=== PATIENT | male | born 1965 | race Caucasian/White ===

== ENCOUNTER → 2022-08-10 14:38 | Outpatient (CLI) | payer MEDICARE, SELFPAY ==
--- NOTE | ~2022-08-10 | XR_ITS ---
EXAMINATION: XR ankle LT min 3V DATE: 08/10/2022 14:54 INDICATION: Left ankle pain. TECHNIQUE: 4 views of left ankle were obtained. COMPARISON: None. FINDINGS: Pes planus is noted. No fracture. There is severe osteoarthritis of talonavicular joint. IMPRESSION: 1. Severe osteoarthritis of talonavicular joint. 2. Pes planus. Reviewed, dictated and finalized at location A. R SCIENTIST
== END ==
PROVIDERS: PCP Internal Medicine; Visit Provider Nurse Practitioner
DX: G89.29 Other chronic pain (principal); M25.572 Pain in left ankle and joints of left foot; M19.072 Primary osteoarthritis, left ankle and foot; M21.42 Flat foot [pes planus] (acquired), left foot
CPT/HCPCS: 73610

== ENCOUNTER → 2023-02-04 13:38 | Outpatient (CLI) | payer MEDICARE, SELFPAY ==
--- NOTE | ~2023-02-04 | CT_ITS ---
EXAMINATION: CT brain wo/w con DATE: 02/04/2023 14:05 INDICATION: Evaluate 12 cm subcutaneous right scalp mass. No just 4 months ago, growing larger than t he last one and one half months. TECHNIQUE: Computed tomography (CT) of the head was performed without and with 100 mL Omnipaque 350 i ntravenous contrast. The mA was adjusted according to patient size. Iterative reconstruction techniqu e was employed. The dose-length product was 1349.03 mGy-cm. COMPARISON: None. FINDINGS: No acute intracranial hemorrhage or extra-axial fluid collection. No hydrocephalus. 7.4 x 5.0 x 9.0 cm intensely and somewhat heterogeneously enhancing mass over the r ight hemisphere, with extra-axial and extracalvarial components. There is penetration of the inner an d outer tables of the skull at the junction of the right posterior frontal, right temporal, and right anterior parietal bones, with scalloping, and mild periosteal change. Mild local mass effect on the cerebral sulci, mild adjacent vasogenic edema, mild mhkoi-ge-hvhu midline shift of 3 mm. No acute ischemic infarct. Unremarkable dural venous sinus attenuation. No acute osseous abnormality. Ethmoid mucosal thickening, small bilateral sphenoid retention cysts/polyps, the remaining aerated sp aces are clear. IMPRESSION: 9 cm, enhancing right hemispheric mass, with extra-axial and extracalvarial components, skull erosion , mild local mass effect, and mild subfalcine herniation. Recommend neurosurgical consultation. Reviewed, dictated and finalized at location K. IMPRESSION: 9 cm, enhancing right hemispheric mass, with extra-axial and extracalvarial com ponents, skull erosion, mild local mass effect, and mild subfalcine herniation. Recommend neurosurgical consultation.
== END ==
PROVIDERS: PCP Nurse Practitioner; Visit Provider Nurse Practitioner
DX: R22.9 Localized swelling, mass and lump, unspecified (principal)
CPT/HCPCS: 70470; Q9967

== ENCOUNTER 2023-03-02 11:40 | Outpatient (CLI) | payer MEDICARE, SELFPAY ==
[2023-03-02 11:54] LABS: Basophils Absolute Auto 0.1 K/mm3 (0.0-0.1); Basophils Percent Auto 0.9 % (0.2-1.2); Eosinophils Absolute Auto 0.2 K/mm3 (0-0.3); Eosinophils Percent Auto 3.9 % (0-4.4); Hematocrit 41.3 % (42.0-52.0); Hemoglobin 13.6 g/dL (14.0-18.0); Immature Granulocyte Absolute 0.01 K/mm3 (0.00-0.031); Immature Granulocyte Percent A 0.2 % (0-0.5); Lymphocytes Absolute Auto 2.27 K/mm3 (0.9-3.2); Lymphocytes Percent Auto 38.7 % (18.3-44.2); Mean Corpuscular HGB Conc 32.9 g/dl (32-36); Mean Corpuscular Hemoglobin 30.7 pg (26-34); Mean Corpuscular Volume 93.2 fl (80-100); Mean Platelet Volume 10.3 fl (7.4-10.4); Monocytes Absolute Auto 0.6 K/mm3 (0.1-0.6); Monocytes Percent Auto 9.7 % (2.6-8.5); Neutrophils Absolute Auto 2.7 K/mm3 (1.3-6.7); Neutrophils Percent Auto 46.6 % (45.5-73.1); Platelet Count Result 197 k/mm3 (150-375); Red Blood Count 4.43 M/mm3 (4.6-6.20); Red Cell Distribution Width 12.4 % (11.5-14.5); White Blood Count 5.9 K/mm3 (4.5-10.0)
[2023-03-02 15:42] LABS: Alanine Aminotransferase 40 U/L (6-50); Albumin Level 4.6 g/dL (3.5-5.1); Alkaline Phosphatase 58 U/L (38-126); Anion Gap 8 mmol/L (8-16); Aspartate Amino Transferase 29 U/L (17-59); Bilirubin,Total 0.5 mg/dL (0.2-1.3); Blood Urea Nitrogen 9 mg/dL (9-20); Calcium 9.3 mg/dL (8.4-10.2); Carbon Dioxide 27 mmol/L (22-30); Chloride 104 mmol/L (98-107); Estimated Glomerular Filt Rate > 60; Glucose 112 mg/dL (65-110); Potassium 4.1 mmol/L (3.4-5.0); Sodium 139 mmol/L (137-145)
[2023-03-03 16:59] LABS: Immunoglobulin A 100 mg/dL (70-400); Immunoglobulin G 567 mg/dL (700-1600)
[2023-03-03 18:30] LABS: Immunoglobulin M < 25 mg/dL (40-230)
[2023-03-05 03:49] LABS: Albumin 4.5 g/dL (3.8-4.8); Alpha 1 Globulin 0.3 g/dL (0.2-0.3); Alpha 2 Globulin 0.7 g/dL (0.5-0.9); Beta 1 Globulin 0.5 g/dL (0.4-0.6); Gamma Globulin 0.6 g/dL (0.8-1.7); Interpretation Consistent with; Protein, Total 6.9 g/dL (6.1-8.1)
[2023-03-05 20:48] LABS: Kappa\\Lambda Light Chains 1.34 (0.26-1.65); Lambda Light Chain 6.8 mg/L (5.7-26.3)
== END 2023-03-02 11:41 | disposition home or self-care (01) ==
LOC: ANHLAB 11:41
PROVIDERS: PCP Family Medicine; Visit Provider Internal Medicine Hematology & Oncology
DX: C90.00 Multiple myeloma not having achieved remission (principal)
CPT/HCPCS: 36415; 80053; 82784; 83883; 84155; 84165; 85025

== ENCOUNTER 2023-03-10 11:52 | Outpatient (CLI) | payer MEDICARE, SELFPAY ==
--- NOTE | ~2023-03-10 | PE_ITS ---
EXAMINATION: PET skull to mid thigh DATE: 03/10/2023 14:33 INDICATION: Multiple myeloma. Assess remission status. TECHNIQUE: Blood glucose level was 116 mg/dL. 8.927 mCi of 18-fluorodeoxyglucose (18-FDG) was adminis tered i.v. Low dose computed tomography (CT) images were acquired from the base of the brain to the p roximal thighs for attenuation correction and anatomic localization. Positron emission tomography (PE T) images were acquired in the same distribution beginning 62 minutes after injection. Images includi ng fused PET/CT images were reconstructed in axial, coronal, and sagittal planes. Automated exposure control technique was employed. The dose-length product was 1099.77mGy-cm. COMPARISON: Head CT dated 02/04/2023 FINDINGS: Head/neck: Again seen is a large right frontal calvarial centered mass measuring 7.2 x 6.2 x 10.0 cm with extrao sseous extension extending through both the inner and outer tables of the skull. The mass demonstrate s relatively mild FDG uptake with maximal SUV of 3.7. The mass has increased in size when compared wi th the prior study at which time are 7.1 x 5.4 x 8.6 cm. There is symmetric increased activity in the oral and nasal cavities, parotid glands, submandibular glands, laryngeal muscles and ocular muscles without CT correlate, likely physiologic. No pathologically enlarged cervical lymphadenopathy or garrett picious foci of increased FDG uptake in the visualized head or neck. Chest: Elevation the right hemidiaphragm with basilar atelectasis in the right middle and lower lobes. Calci fied right lower lobe nodules consistent with old granulomatous disease. No suspicious pulmonary nodu les, pneumonia, pulmonary edema or pleural effusion. Heart size is normal. Small pericardial effusion . Thoracic aorta is normal in caliber. No pathologically enlarged or FDG avid thoracic lymphadenopath y. Abdomen/pelvis/proximal thighs: Physiologic renal accumulation and excretion of FDG activity in the kidneys, bladder and along portio ns of ureters. Normal degree and heterogenous pattern of increased uptake throughout the liver withou t radiologic correlate or dominant FDG avid lesion. The gallbladder, pancreas, spleen and bilateral a drenal glands are normal. Mild uptake scattered throughout the bowels without radiologic correlate, a lso likely physiologic. Diverticulosis with descending and sigmoid colon predominance without adjacen t from trace stranding to suggest diverticulitis. Normal appendix. Prostatomegaly. No other abnormal foci of increased FDG uptake or pathologically enlarged lymphadenopathy in the abdomen, pelvis or pro ximal thighs. Musculoskeletal: Small lytic lesion without evident corresponding increased FDG uptake at T6, T10. Mild increased FDG uptake with maximal SUV of 3.1 associated with a healing fracture of the anterior left eighth rib wit hout evident underlying lytic bone lesion. 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 Mild lumbar levoscoliosis. IMPRESSION: 1. Mild increased FDG uptake associated with an enlarging now 10.0 x 7.2 x 6.2 cm right frontal ry rial based mass with both deep and superficial extraosseous extension consistent with biopsy-proven p lasmacytoma. Although the FDG uptake is relatively low, the mass has increased in size since the rece nt head CT consistent with progression of disease despite reported interval radiation treatment. 2. A couple additional small lytic lesions in the T6 and T10 vertebral bodies which are without evide nt increased FDG uptake although given the relatively low uptake at the significantly larger mass in the skull additional multiple myeloma could not be excluded.
[2023-03-10 12:47] LABS: Glucose Point of Care 116 mg/dl (65-105)
== END 2023-03-10 11:53 | disposition home or self-care (01) ==
PROVIDERS: PCP Family Medicine; Visit Provider Internal Medicine Hematology & Oncology
DX: C90.00 Multiple myeloma not having achieved remission (principal); M89.9 Disorder of bone, unspecified
CPT/HCPCS: 77386; 78815; A9552

== ENCOUNTER 2023-05-23 00:56 | Day surgery (SDC) | payer MEDICARE, SELFPAY ==
[2023-05-18 11:49] VITALS: BMI 25.7
--- NOTE | 2023-05-18 11:57 | PC.NURSE ---
Report to the Outpatient Waiting Room, entrance under the green pavilion located off [facility], at time 10:00 on date 05/23/23. Planned Procedure Time: 12:00. Time changes happen often and if your time is changed the preop area will call you the afternoon before. - You and your visitor will be asked to self-screen and do not enter if you have any COVID symptoms. - A mask is optional within the hospital at this time. Patients may have clear liquids (water, carbonated beverages, clear teas, apple juice) until 3 hours prior to surgery with a maximum of 20 ounces. - No food from midnight until time of surgery Take the following medications with a SIP of water the morning of surgery: ACYCLOVIR, DEXAMETHASONE, BACTRIM DO NOT STOP ANY OF YOUR OTHER PRESCRIPTION MEDICATIONS PRIOR TO SURGERY ?EXCEPT THE FOLLOWING Medications to discontinue per physician: N/A Date to take last dose: N/A Please no make-up, nail maori, hairspray, perfume, deodorant, or body powder the day of surgery. No jewelry (including any body piercings) or valuables the day of surgery, leave them at home. Please take a shower or bath the night before, or the morning of, surgery with an antibacterial soap. Wear comfortable, loose fitting clothing. - Jewelry must be removed prior to entering the operating room. Rings and piercings that are not removed may be cut off. - The hospital will not accept responsibility for valuables. - Please leave all valuables, including medications, at home the day of surgery. If you are going home after surgery, a licensed tour driver must drive you home. - NO public transportation without another adult if you receive anesthesia. - We recommend that an adult stay with you for 24 hours following discharge. - We also recommend that you do not drive, make important decision, drink alcoholic beverages, or take any drugs that were not prescribed by your health care provider for at least 24 hours after your discharge time. Follow any additional instructions given to you from your surgeon. If you or anyone in your household have experienced Covid symptoms in the past week, please notify your surgeon or the nurse liaison at the phone number below for possible testing. Telephone instructions given to PT - ALICIA THOMAS and asked if any additional questions and then verbalized understanding. Patient advised to call surgeon office or pre surgery nurse liaison [phone] if any additional questions.
[2023-05-23] VITALS (10 sets, daily range): BP systolic 113–131; BP diastolic 64–78; PULSE 68–85; RESP 12–20; TEMP 36.2–36.6; O2SAT 93–98
--- NOTE | ~2023-05-23 | XR_ITS ---
XR chest port-a-cath/central, XR fl guide central line place 05/23/2023 12:36 (accession [id number]), 05/23/2023 11:58 (accession [id number]) Indication: Portacatheter placement Procedure: Single fluoroscopic view of the right chest. 30 seconds of fluoroscopy. AP portable chest. Comparison: No prior studies for comparison. Findings: Right-sided portacatheter, tip in the condyle aspect of the SVC. Cardiomegaly. Left basilar atelectasis. No pneumothorax. No significant effusion. Impression: 1: Left basilar atelectasis. 2: Right-sided portacatheter tip in the SVC. Reviewed, dictated and finalized at location B. Impression: 1: Left basilar atelectasis. 2: Right-sided portacatheter tip in the SVC. Impression: 1: Left basilar atelectasis. 2: Right-sided portacatheter tip in the SVC.
--- NOTE | 2023-05-23 10:04 | WPDANESEPPF ---
Anes - Initial Pre Proc Eval Procedure: Operation Date: 05/23/23 12:00 Proposed Procedures p Insertion Shani Cath - Domenic Madera MD Date/Time: 05/23/23 10:04 Surgeon: Domenic Madera MD Pre Op Diagnosis: Multiple Myeloma Patient Data Age: 58 Gender: M Height: 1.78 m Weight: 81.2 kg Allergies Allergy/AdvReac Type Severity Reaction Status Date / Time No Known Allergies Allergy Unknown Verified 05/18/23 11:46 Home Medications Medication Instructions Recorded Confirmed Type finasteride 5 mg tablet 5 mg PO DAILY #90 tabs 04/11/23 05/18/23 Rx ezetimibe 10 mg tablet 10 mg PO DAILY #90 tabs 05/13/23 05/18/23 Rx rosuvastatin 40 mg tablet 40 mg PO DAILY #90 tabs 05/13/23 05/18/23 Rx acyclovir 400 mg tablet 400 mg PO BID 05/18/23 05/18/23 History aspirin 325 mg tablet 325 mg PO DAILY 05/18/23 05/18/23 History dexamethasone 4 mg tablet See Rx Instructions .Route .COMPLEX 05/18/23 05/18/23 History lidocaine-prilocaine 2.5 %-2.5 % See Rx Instructions .Route .COMPLEX 05/18/23 05/18/23 History topical cream ondansetron HCl 8 mg tablet 8 mg PO PRN PRN Nausea And Vomiting 05/18/23 05/18/23 History sulfamethoxazole 800 1 tablet PO DAILY 05/18/23 05/18/23 History mg-trimethoprim 160 mg tablet Patient hx anesthesia problems: none Family hx anesthesia problems: none Results Review: All pre-operative results and documents have been reviewed as part of the pre-operative evaluation. [facility] Past Medical History Medical History Amputation of right lower extremity Essential (primary) hypertension Mixed hyperlipidemia Rheumatoid arthritis Social History Social History Smoking status: Never smoker Tobacco type: cigars Second hand tobacco smoke exposure: No Alcohol intake: current Drinks per week: 3 Alcohol use details: WINE/MIXED DRINK Substance use: current Substance use type: marijuana Other substance usage details: EDIBLES Lack of Transportation: No Lack of Food: Never True Current Housing: I Do Not Have Housing Concerned About Future Housing: No Difficulty Paying Gas/Electric Bills: No Difficulty Paying for Meds: No Currently Unemployed: No Education: Trade/Vocational Certificate Difficulty w/ Childcare or Family Care: No Living arrangements: with family Additional living arrangements comments: SON Spiritual care concerns: No Anes - Eval Final PreProcedure Day of Procedure 05/23/23 10:04 Patient weight: overweight Heart: regular rate and rhythm Lungs: clear to auscultation Airway: Mallampati scale class II Neurological: alert and oriented Last oral intake: >/= 8 hours ASA classification: III Emergent: no Anesthetic plan: proceed Anesthesia type and monitoring: general GIVS and standard monitoring Results Review: All pre-operative results and documents have been reviewed as part of the pre-operative evaluation. Informed Consent: The patient's anesthetic plan and its attendant risks and benefits were discussed with the patient/family/POA. Questions were solicited and answers provided to the satisfaction of the patient/family/POA.
--- NOTE | 2023-05-23 10:42 | PM.IMHP ---
H&P: HPI History of Present Illness Date/Time: 05/23/23 10:42 Chief Complaint: Multiple myeloma, need for portacatheter placement. Narrative: Pt presents for placement of a portacatheter for treatment of recently diagnosed multiple myeloma. He had a pathologic fracture of the right arm repaired by ortho oncology at [facility] about 5 weeks ago. He has never had a prior central line in IJ or SC veins. No hx of clavicular fx. Review of Systems Review of Systems: The remainder of the review of systems to include constitutional, HEENT, cardiovascular, respiratory, GI, , integumentary, musculoskeletal, endocrine, immunologic, hematologic, psychiatric, and neurologic are all negative except for which is mentioned above in the HPI. [facility] Past Medical History Medical History Amputation of right lower extremity Essential (primary) hypertension Mixed hyperlipidemia Rheumatoid arthritis Social History Social History Smoking status: Never smoker Tobacco type: cigars Second hand tobacco smoke exposure: No Alcohol intake: current Drinks per week: 3 Alcohol use details: WINE/MIXED DRINK Substance use: current Substance use type: marijuana Other substance usage details: EDIBLES Lack of Transportation: No Lack of Food: Never True Current Housing: I Do Not Have Housing Concerned About Future Housing: No Difficulty Paying Gas/Electric Bills: No Difficulty Paying for Meds: No Currently Unemployed: No Education: Trade/Vocational Certificate Difficulty w/ Childcare or Family Care: No Living arrangements: with family Additional living arrangements comments: SON Spiritual care concerns: No Meds Home Medications and Allergies Home Medications Medication Instructions Recorded Confirmed Type finasteride 5 mg tablet 5 mg PO DAILY #90 tabs 04/11/23 05/18/23 Rx ezetimibe 10 mg tablet 10 mg PO DAILY #90 tabs 05/13/23 05/18/23 Rx rosuvastatin 40 mg tablet 40 mg PO DAILY #90 tabs 05/13/23 05/18/23 Rx acyclovir 400 mg tablet 400 mg PO BID 05/18/23 05/18/23 History aspirin 325 mg tablet 325 mg PO DAILY 05/18/23 05/18/23 History dexamethasone 4 mg tablet See Rx Instructions .Route .COMPLEX 05/18/23 05/18/23 History lidocaine-prilocaine 2.5 %-2.5 % See Rx Instructions .Route .COMPLEX 05/18/23 05/18/23 History topical cream ondansetron HCl 8 mg tablet 8 mg PO PRN PRN Nausea And Vomiting 05/18/23 05/18/23 History sulfamethoxazole 800 1 tablet PO DAILY 05/18/23 05/18/23 History mg-trimethoprim 160 mg tablet Allergies Allergy/AdvReac Type Severity Reaction Status Date / Time No Known Allergies Allergy Unknown Verified 05/18/23 11:46 Exam Const: General: comfortable and no acute distress HENMT: Ears: TM's normal bilaterally Face/Nose/Sinus: Normal nares present Eyes: General: appearance normal, both eyes and all related structures Sclera: sclerae normal Pupils: Equal, round and reactive pupils present Neck: Neck: supple and no JVD Chest: Other: Clavicles symmetric. 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
[2023-05-23 10:48] LABS: Basophils Percent Auto 0.6 % (0.2-1.2); Eosinophils Absolute Auto 0.2 K/mm3 (0-0.3); Eosinophils Percent Auto 2.8 % (0-4.4); Hematocrit 40.6 % (42.0-52.0); Hemoglobin 12.9 g/dL (14.0-18.0); Immature Granulocyte Absolute 0.02 K/mm3 (0.00-0.031); Immature Granulocyte Percent A 0.3 % (0-0.5); Lymphocytes Absolute Auto 2.05 K/mm3 (0.9-3.2); Lymphocytes Percent Auto 28.4 % (18.3-44.2); Mean Corpuscular HGB Conc 31.8 g/dl (32-36); Mean Corpuscular Hemoglobin 30.3 pg (26-34); Mean Corpuscular Volume 95.3 fl (80-100); Mean Platelet Volume 10.2 fl (7.4-10.4); Monocytes Absolute Auto 0.7 K/mm3 (0.1-0.6); Monocytes Percent Auto 9.4 % (2.6-8.5); Neutrophils Absolute Auto 4.2 K/mm3 (1.3-6.7); Neutrophils Percent Auto 58.5 % (45.5-73.1); Platelet Count Result 211 k/mm3 (150-375); Red Blood Count 4.26 M/mm3 (4.6-6.20); Red Cell Distribution Width 13.1 % (11.5-14.5); White Blood Count 7.2 K/mm3 (4.5-10.0)
--- NOTE | 2023-05-23 10:49 | WPDHPUPDATE1 ---
History and Physical Update Update Date/Time: 05/23/23 10:49 History and Physical has been reviewed, including an updated exam of the patient. There are NO changes in the patient's condition. Risks, benefits, and alternatives have been discussed and questions answered. Patient agrees to proceed with procedure.
[2023-05-23 11:01] LABS: INR 0.9; Partial Thromboplastin Time 25.8 SECONDS (22.3-36.8); Prothrombin Time 12.8 Seconds (11.1-14.7)
[2023-05-23] MEDS: LACTATED RINGERS 1,000 ML 30 ML IV CONT (11:04)
[2023-05-23] MEDS: ceFAZolin 2 GM/D5W 50 ML 2 GM/50 ML BAG IVPB (11:08)
[2023-05-23] MEDS: HEPARIN SODIUM 5,000 UNITS/ML VIAL 5000 UNITS IRRIGATION (11:39)
[2023-05-23] MEDS: HEPARIN SODIUM 1,000 UNITS/ML VIAL 1000 UNITS IV PUSH (11:40)
[2023-05-23] MEDS: BUPivacaine HCL 0.5% PF 30 ML VIAL INFILTRATE (11:41)
--- NOTE | 2023-05-23 12:21 | W.PM.PROC2 ---
Procedure Note - Detailed Date of Procedure 05/23/23 Pre-op Diagnosis Multiple Myeloma Post-op Diagnosis Same Procedure Performed Placement of right internal jugular vein single-lumen port a catheter with intraoperative fluoroscopy Surgeon Domenic Madera MD [employer] Systems Installer CHET Quintana Anesthesia General Indications Patient is a 58-year-old gentleman who was found to have a pathologic right humeral fracture and was ultimately found to multiple myeloma. He presents now for placement merced catheter to begin chemotherapy treatments. Findings None significant. Description of Procedure After informed consent was obtained patient brought to the operating room was placed supine position and then general LMA anesthesia was administered. The bilateral anterior neck and chest was then prepped and draped usual sterile fashion. A time-out was then performed correctly identifying the patient as well as the procedure to be performed. He was given perioperative IV antibiotics. I proceeded to place the patient in the head-down Trendelenburg position and then accessed the right internal jugular vein percutaneously on the 1st pass without any difficulty between the 2 heads of the right sternocleidomastoid muscle with an 18gauge spinal needle.. There was prompt return of dark venous appearing blood. A guidewire was then passed through the needle into the right internal jugular vein assessment down into the superior vena cava. Intraoperative fluoroscopy was then used to verify that the tip of the guidewire was in the proper position. I then utilized 1% lidocaine mixed with 0.5% Marcaine injected just below the medial 3rd of the right clavicle on the right anterior chest wall I then made a transverse incision in this area with a scalpel and then dissected down through the subcutaneous tissue electrocautery. I then created a subcutaneous port pocket below the incision was electrocautery and blunt finger dissection. I then a 9.6 Turkmen single-lumen catheter between the chest incision and small neck incision. I then advanced a dilator and breakaway sheath over the guidewire and then removed the guidewire and dilator leaving the sheath in place. I then advanced the catheter through the sheath into the right internal jugular vein and subsequently down into the right atrium of the heart. Then utilizing intraoperative fluoroscopy I visualized the tip of the catheter and pulled back external to the chest wall until the catheter was in the distal superior vena cava. I then cut the catheter to the appropriate length at the skin level and attached to the Smart Port. The Smart port was then secured in the subcutaneous port pocket on 3 sides utilizing 3-0 Prolene sutures. I then irrigated out the port pocket sterile saline solution hemostasis was good. I then accessed the port and aspirated blood and flushed with heparinized saline solution easily. I then closed the anterior right chest wall incision utilizing interrupted 3-0 Vicryl sutures in the subcutaneous tissues. The skin edges were then approximated utilizing a running subcuticular 4-0 Monocryl suture. The small neck incision was closed with a 4-0 Monocryl suture as well. Both incisions were then cleaned and then skin glue was applied. I then accessed the port percutaneously with the Read needle and once again it karen back blood easily and then I flushed with 5000units of IV heparin. The patient tolerated the procedure well no complications. All sponges, needles, and instrument counts were correct at the end procedure. EBL was _25__cc. The patient was awakened and taken to recovery in stable and satisfactory condition. Implants Smart Port attached to 9.6 Turkmen single-lumen catheter Estimated Blood Loss 25 Drains No Packing No Pathology None sent Complications No immediate complications Condition Stable Disposition PACU [facility] Billing Surgery - Charge Forward: Surgery Billing
== END 2023-05-23 15:04 | disposition home or self-care (01) ==
PROVIDERS: PCP Family Medicine; Visit Provider Surgery
PROC: (CPT 36561; principal; 2023-05-23 12:00)
DX: C90.00 Multiple myeloma not having achieved remission (principal); J98.11 Atelectasis; I10 Essential (primary) hypertension; E78.2 Mixed hyperlipidemia; F17.290 Nicotine dependence, other tobacco product, uncomplicated; F12.90 Cannabis use, unspecified, uncomplicated; Z79.82 Long term (current) use of aspirin
CPT/HCPCS: 36561; 36415; 77001; 85025; 85610; 85730; C1788; J0690; J1100; J1644; J2250; J2405; J2704; J3010; J7030; J7120

== ENCOUNTER 2024-04-30 00:07 | Day surgery (SDC) | payer MEDICARE, SELFPAY ==
[2024-04-27 13:26] VITALS: BMI 25.0
--- NOTE | ~2024-04-30 | BM_ITS ---
EXAMINATION: CCL bone marrow asp w bx diag DATE: 04/30/2024 09:46 INDICATION: Multiple myeloma. TECHNIQUE: A time-out was performed to verify the patient's name, date of , and procedure to b e performed. The procedure including the risks, benefits, and alternatives was discussed with the pat ient. Risks discussed included bleeding and infection. The patient understood the risks and agreed to proceed. The skin overlying the right ilium was prepped and draped in usual sterile fashion. Anest hetic was administered with 1% lidocaine subcutaneously. Moderate sedation was achieved with 2 mg Celia sed IV and 100 mcg fentanyl IV. An 11 gauge needle was inserted into the ilium with fluoroscopic tomás dance. Bone marrow was aspirated. An 8 gauge needle was then inserted into the ilium with fluoroscopi c guidance. A core bone marrow biopsy was obtained. There were no immediate complications. Fluoroscop y exposure time was 0.0 minutes. The total number of images was 25. FINDINGS: Real-time fluoroscopy demonstrates a marker overlying the right posterior superior iliac sp ine. IMPRESSION: 1. Fluoro-guided bone marrow aspiration. 2. Fluoro-guided bone marrow core biopsy. Reviewed, dictated and finalized at location A.
[2024-04-30 07:40] VITALS: BP 152/85; PULSE 75; RESP 20; TEMP 37.2; O2SAT 98; BMI 25.0
[2024-04-30 08:07] LABS: Hemoglobin 13.9 g/dL (14.0-18.0); Mean Corpuscular HGB Conc 32.3 g/dl (32-36); Mean Corpuscular Hemoglobin 28.6 pg (26-34); Mean Corpuscular Volume 88.5 fl (80-100); Mean Platelet Volume 10.6 fl (7.4-10.4); Platelet Count Result 150 k/mm3 (150-375); Red Blood Count 4.86 M/mm3 (4.6-6.20); Red Cell Distribution Width 13.2 % (11.5-14.5); White Blood Count 3.9 K/mm3 (4.5-10.0)
[2024-04-30 08:11] LABS: Prothrombin Time 13.6 Seconds (11.1-14.7)
--- NOTE | 2024-04-30 09:03 | WPDMODSED ---
Moderate Sedation Note-Pt Data Patient Data Diagnosis: Multiple myeloma. Present Complaint: Multiple myeloma. Procedure to be performed/Plan: Fluoro-guided bone marrow biopsy of ilium. Allergies Allergy/AdvReac Type Severity Reaction Status Date / Time No Known Allergies Allergy Unknown Verified 04/30/24 07:38 Home Medications Medication Instructions Recorded Confirmed Type finasteride 5 mg tablet 5 mg PO DAILY #90 tabs 11/15/23 04/27/24 Rx lenalidomide 10 mg capsule 10 mg PO DAILY 02/16/24 04/27/24 History (Revlimid) potassium chloride 20 mEq 20 meq PO BID 02/16/24 04/27/24 History tablet,extended release zoledronic acid 4 mg intravenous 4 mg IV MONTHLY 02/16/24 04/27/24 History solution rosuvastatin 40 mg tablet 40 mg PO DAILY #90 tabs 04/10/24 04/27/24 Rx aspirin 81 mg tablet 81 mg PO DAILY 04/27/24 04/27/24 History gabapentin 300 mg capsule 300 mg PO BID 04/27/24 04/27/24 History Sedation/Anesthesia: No previous sedation/anesthesia problems (including family history). [facility] Past Medical History Medical History Amputation of right lower extremity Essential (primary) hypertension Mixed hyperlipidemia Rheumatoid arthritis Family History Family History (System 03/09/24 @ 12:05 by Maxi Sheth) Other Diabetes mellitus Social History Social History (System 03/09/24 @ 12:05 by Maxi Sheth) Smoking status: Never smoker Tobacco type: cigars Second hand tobacco smoke exposure: No Alcohol intake: current Drinks per week: 2 Alcohol use details: WINE/MIXED DRINK Substance use: current Substance use type: marijuana Other substance usage details: EDIBLES Lack of Transportation: No Lack of Food: Never True Current Housing: I Do Not Have Housing Concerned About Future Housing: No Difficulty Paying Gas/Electric Bills: No Difficulty Paying for Meds: No Currently Unemployed: No Education: Trade/Vocational Certificate Difficulty w/ Childcare or Family Care: No Living arrangements: with family Additional living arrangements comments: SON Spiritual care concerns: No Mod Sed Physical Exam Physical Exam Pre Procedural Exam: Normal: Lungs, Heart Rate, Heart Rhythm and Abdomen and Variation: Extremities (Absent right lower limb.) Hours since solid foods: 11 Hours since liquid intake: 10 Mallampati Classification: class 1 Internal Medicine - PN: Obj Da Vital Signs Vital Signs: Vital Signs - 24 hr 04/30/24 07:40 Temperature 37.2 C Pulse Rate 75 Respiratory Rate 20 Blood Pressure 152/85 H Pulse Oximetry 98 Oxygen Delivery Room Air Labs 04/30/24 07:45 Labs: Laboratory Results - last 24 hr 04/30/24 07:45 WBC 3.9 L RBC 4.86 Hgb 13.9 L Hct 43.0 MCV 88.5 MCH 28.6 MCHC 32.3 RDW 13.2 Plt Count 150 MPV 10.6 H PT 13.6 INR 1.0 ASA Classification/Sedation ASA Classification/Sedation ASA Class: II Emergent: No Risks: Risks, benefits and alternatives explained and patient/family accepted plan for sedation. Patient re-evaluated immediately prior to sedation.
[2024-04-30 09:45] VITALS: BP 124/79; PULSE 67; RESP 15; O2SAT 96
[2024-04-30 10:00] VITALS: BP 119/72; PULSE 66; RESP 12; O2SAT 96
[2024-04-30 10:15] VITALS: BP 125/71; PULSE 66; RESP 15; O2SAT 95
[2024-04-30 10:31] VITALS: BP 114/67; PULSE 69; RESP 13; O2SAT 95
[2024-04-30 10:45] VITALS: BP 109/75; PULSE 65; RESP 14; O2SAT 95
== END 2024-04-30 10:57 | disposition home or self-care (01) ==
PROVIDERS: Radiology Diagnostic Radiology; PCP Nurse Practitioner; Referring Provider Internal Medicine Hematology & Oncology; Visit Provider Radiology Diagnostic Radiology
DX: D75.89 Other specified diseases of blood and blood-forming organs (principal); I10 Essential (primary) hypertension; E78.2 Mixed hyperlipidemia; F17.290 Nicotine dependence, other tobacco product, uncomplicated; F12.90 Cannabis use, unspecified, uncomplicated; Z79.82 Long term (current) use of aspirin; Z98.890 Other specified postprocedural states; Z89.511 Acquired absence of right leg below knee
CPT/HCPCS: 36415; 38222; 85027; 85610; 88305; 88311; 88313; J1642; J2250; J3010; J7040

== ENCOUNTER 2024-12-18 10:32 | Outpatient (CLI) | payer MEDICARE, SELFPAY ==
--- NOTE | ~2024-12-18 | PE_ITS ---
EXAMINATION: PET skull to mid thigh DATE: 12/18/2024 12:39 INDICATION: Multiple myeloma TECHNIQUE: Blood glucose level was 105 mg/dL. 9.765 mCi of 18-fluorodeoxyglucose (18-FDG) was adminis tered i.v. Low dose computed tomography (CT) images were acquired from the base of the brain to the p roximal thighs for attenuation correction and anatomic localization. Positron emission tomography (PE T) images were acquired in the same distribution beginning 56 minutes after injection. Images includi ng fused PET/CT images were reconstructed in axial, coronal, and sagittal planes. Automated exposure control technique was employed. The dose-length product was 1209.47mGy-cm. COMPARISON: None FINDINGS: Head/neck: Complete resolution of a previously mildly FDG avid soft tissue mass extending deep and superficial t o a large lytic defect in the calvarium overlying the right frontal lobe consistent with interval res ponse to treatment of multiple myeloma. There is new opacification extending across the prior calvari al defect. No interval change in a second lytic calvarial defect overlying the left frontoparietal re gion which without evident soft tissue mass or abnormal FDG uptake also likely related to prior multi ple myeloma. There is symmetric increased activity in the oral cavity, palatine tonsils, parotid glan ds, submandibular glands, laryngeal muscles and ocular muscles without CT correlate, likely physiolo gic. No pathologically enlarged cervical lymphadenopathy or suspicious foci of increased FDG uptake i n the visualized head or neck. Chest: Right internal jugular central venous port catheter with distal tip near the superior cavoatrial junc tion. Elevation of the right hemidiaphragm with basilar atelectasis in the right middle and lower lob es. Calcified right infrahilar nodules/lymph nodes consistent with old granulomatous disease. No othe r suspicious pulmonary nodules, pneumonia, pulmonary edema or pleural effusion. Mild cardiomegaly. Sm all pericardial effusion. Thoracic aorta is normal in caliber. No significant change in asymmetric en largement of the right thyroid lobe with suggestion of a proximally 4 cm right thyroid mass which is without significant increased FDG uptake. Abdomen/pelvis/proximal thighs: Physiologic renal accumulation and excretion of FDG activity in the kidneys, bladder and along portio ns of ureters. Prostatomegaly measuring 5.8 x 5.2 cm. 1.8 cm exophytic lesion at the upper pole of th e left kidney with relatively low but greater than simple fluid attenuation and without evident FDG a ctivity most likely representing a complex proteinaceous/hemorrhagic cyst although differential inclu adrianna solid neoplasm. Normal degree and heterogenous pattern of increased uptake throughout the liver w ithout radiologic correlate or dominant FDG avid lesion. Unchanged 1.2 cm low-attenuation cyst in the right hepatic lobe. Tiny calcified gallstone in the dependent aspect otherwise normal-appearing gall bladder. The pancreas, spleen and bilateral adrenal glands are normal. Mild uptake scattered througho ut the bowels without radiologic correlate, also likely physiologic. There is moderate colonic divert iculosis with a sigmoid predominance. There is no adjacent inflammatory change to suggest diverticuli tis. No other abnormal foci of increased FDG uptake or pathologically enlarged lymphadenopathy in the abdomen, pelvis or proximal thighs. Musculoskeletal: Small lytic lesion without evident corresponding increased FDG uptake at T6, T10. Femoral development of a well-defined thin sclerotic rim surrounding the lesion at T6. There are couple subtle lytic les ions at the right side of the L1 and L2 vertebral bodies which in retrospect appear to been present a t the time of the prior study but are more discernible on the current study due to decrease central d ensity which could represent response to treatment with lower density marrow replacing prior neoplasm . Both remain without abnormal FDG uptake. No definitively new, enlarging or abnormally FDG avid lyti c bone lesions identified. 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 Mild thoracolumbar levoscoliosis. 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 IMPRESSION: 1. Several scattered lytic bone lesions without evident FDG uptake and with interval resolution of a large associated soft tissue mass at the lesion at the right calvarium consistent with response to tr eatment of reported multiple myeloma. No new, enlarging or FDG avid lytic bone lesions identified. 2. Asymmetric enlargement of the right thyroid lobe is suggestion of a 4 cm right thyroid mass. Consi nakul thyroid ultrasound for risk stratification. 3. Indeterminate 1.8 cm exophytic lesion at the upper pole the right kidney statistically most likely to represent a proteinaceous/hemorrhagic cyst although solid neoplasm is not excludable and would re commend further evaluation with pre and postcontrast MRI or CT. 4. Prostatomegaly. 5. Tiny gallstone. Reviewed, dictated and finalized at location A. IMPRESSION: 1. Several scattered lytic bone lesions without evident FDG uptake and with int erval resolution of a large associated soft tissue mass at the lesion at the [facility] calvarium consistent with response to treatment of reported multiple myelom a. No new, enlarging or FDG avid lytic bone lesions identified. 2. Asymmetric enlargement of the right thyroid lobe is suggestion of a 4 cm rig ht thyroid mass. Consider thyroid ultrasound for risk stratification. 3. Indeterminate 1.8 cm exophytic lesion at the upper pole the right kidney sta tistically most likely to represent a proteinaceous/hemorrhagic cyst although s olid neoplasm is not excludable and would recommend further evaluation with pre and postcontrast MRI or CT. 4. Prostatomegaly. 5. Tiny gallstone.
--- OUTSIDE RECORDS SUMMARY | 2024-12-18 10:47 | XMS_ITS | Encounter Summary ---
Author Organization [facility] Health Address [address] [facility] [place] [address] Care Team Providers Care Communicable Disease Specialist Name Role Phone Alon Manriquez Suhail ARNDT Unavailable [phone] Sara Oquendo MD Unavailable [phone] Jeniffer Wilcox MD Unavailable Arturo Reyes MD Unavailable Gwendolyn ColeD Unavailable Unavaila Sudha Acosta RN Unavailable Unavailable Rosanna Morales UNIVERSITY REGISTRAR-RN SPINE Unavailable [phone] Julianne Guy UNIVERSITY REGISTRAR-RN SPINE Unavailable [phone] Maida Conde RN Unavailable Unavaila Radha Alvarez LCSW Unavailable Unavailab Zenia Hua Unavailable Unavailable Encounter Details Date Type Department Care Team (Late st Contact Info) Description 05/01/2024 Lab Requisition [facility] - Pathology Lab [address] [place] [address] Candido Blevins MD [address] [address] Illness, unspecified Social History Tobacco Use Types Packs/Day Years Used Date Smoking Tobacco: Never Smokeless Tobacco: Never Alcohol Use Standard Drinks/Week Comments Yes 2 (1 standard drink = 0.6 oz pur e alcohol) socially AUDIT-C Answer Date Recorded Q1: How often do you have a drink containing alcohol? Never 04/19/2023 Q2: How many drinks containi ng alcohol do you have on a typical day when you are drinking? Patient does not drink 3 Q3: How often do you have si x or more drinks on one occasion? Never 04/19/2023 Overall Financial Resource Strain (CARDIA) Answe r Date Recorded How hard is it for you to pa y for the very basics like food, housing, medical care, and heating? Not hard at all 04/19/2023 [facility] - Occupational Stress Questionnaire Answer Date Recorded Do you feel stress - tense, restless, nervous, or anxious, or unable to sleep at night because your mind is troubled all the time - these days? Not at all 04/19/2023 Hunger Vital Sign Answer Date Recorded Within the past 12 months, y ou worried that your food would run out before you got the money to buy more. Never true 04/19/20 23 Within the past 12 months, t he food you bought just didn't last and you didn't have money to get more. Never true 04/19/2023 PRAPARE - Transportation Answer Date Re corded In the past 12 months, has l ack of transportation kept you from medical appointments or from getting medications? No 04/01 In the past 12 months, has l ack of transportation kept you from meetings, work, or from getting things needed for daily living? No 04/19/2023 Housing Stability Vital Sign Answer Jean e Recorded In the last 12 months, was t here a time when you were not able to pay the mortgage or rent on time? No 04/19/2023 In the last 12 months, how many places have you lived? 1 04/19/2023 In the last 12 months, was t here a time when you did not have a steady place to sleep or slept in a skilled nursing (including now)? 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 Answer Date of Assessment Author No 04/19/2023 8:30 PM Pietro Kiser RN * Is person blind or have serious difficulty seeing? Answer Date of Assessment Author No 04/19/2023 8:30 PM CDT Pietro Miner RN * Does person have serious difficulty walking/climbing stairs? Answer Date of Assessment Author No 04/19/2023 8:30 PM CDT Pietro Miner RN * Does person have difficulty dressing/bathing? Answer Date of Assessment Author No 04/19/2023 8:30 PM CDT Pietro Miner RN * Does person have difficulty doing errands alone? Answer Date of Assessment Author No 04/19/2023 8:30 PM CDT Pietro Miner RN documented as of this encounter Mental Status * Does person have difficulty concentrating/remembering/making decisions? Answer Entry Date Author No 04/19/2023 8:30 PM CDT Pietro Miner RN documented in this encounter Plan of Treatment Not on file documented as of this encounter Procedures Procedure Name Priority Date/Time Associated Diagnosis Comments BONE MARROW BIOPSY (STL) Routine 04/30/2024 9:28 AM CDT Illness, unspecified documented in this encounter Results * BONE MARROW BIOPSY (STL) (04/30/2024 9:28 AM CDT) Case Report Bone Marrow Patholog y Report Case: [id number] Authorizing Provider: Candido Blevins Collected: 04/30/2024 09:28 AM MD Enmanuel Ordering Location: [facility] - Received: 05/01/2024 01:06 PM Pathology Lab Pathologist: Jovanny Cabrales MD Specimens: A) - Bone Marrow Clot B) - Bone Marrow Core 05/04/2024 12:49 PM CDT [facility] Final Diagnosis Bone marrow, aspirate, clot section, and core biopsy: - Essentially normocellular bone marrow for age (40-50% cellularity) - Trilineage hematopoiesis with no significant dyspoiesis - Decreased iron storage 05/04/2024 12:49 PM CDT [facility] at 1740 CDT AP Comment There is no diagnostic evidence of plasma cell myeloma, advanced myelodysplastic neoplasm, acute leukemia, or lymphoma. Clinical correlation, correlation with pending cytogenetics, FISH panel, etc. recommended. 05/04/2024 12:49 PM [facility] Peripheral Smear Description Not provided for review. 05/04/2024 12:49 PM [facility] Bone Marrow Aspirate Specimen quality: Adequate. Spicules: Present. Trilineage Hematopoiesis: Normal. Myeloid:Erythroid ratio: Normal. Myeloid Maturation: Normal. Erythroid Maturation: Normal, rare cells with nuclear contour irregularity, and rare binucleated cells. Megakaryocyte morphology: Normal, rare microcytic forms, and forms with hypo- or mono-lobation. Plasma cells and lymphocytes: Scattered seen. Storage iron (by special stain): Decreased. Sideroblastic iron (by special stain): No ring sideroblasts seen 05/04/2024 12:49 PM [facility] Bone Marrow Core Biopsy and Clot Section Description Specimen quality: Adequate, 15 mm of evaluable marrow. Cellularity: 40-50%, essentially normocellular. Blasts: Few, no aggregates, 2-3% as highlighted by CD34 and CD117 stains. Trilineage Hematopoiesis: Present. Myeloid to Erythroid ratio: Normal. Myeloid maturation and localization: Normal. Erythroid maturation and localization: Normal. Megakaryocyte number: Normal. Megakaryocyte distribution: Normal. Lymphoid aggregates: Rare seen in the interstitium, predominantly comprising of small lymphocytes, with admixed T-cells (highlighted by CD3), and lesser amounts of B-cells (highlighted by CD20 and PAX5). BCL2 highlights the T-cells, and a subset of the B-cells.. The lymphoid aggregates are negative for CD10, BCL6 and cyclin D1, with low Ki-67 labeling (5-10%). Plasma cells: Scattered seen. 1-2%, as highlighted by CD138 stain, with no expression of CD56. Clot section marrow particles: Present. Clot section morphology: Similar to core biopsy specimen. Storage iron (by special stain): Decreased. Sideroblastic iron (by special stain): No ring sideroblasts seen 05/04/2024 12:49 PM [facility] Flow Cytometry Summary Bone marrow, flow cytometric immunophenotyping: - No significant numbers of plasma cells (2% of total). - A minute population of CD19 and CD10 positive cells identified in the dim CD45 region (less than 1% of total), with kappa-restriction. Correlation with morphology and additional ancillary studies of the concurrent bone marrow specimen necessary for the clinical significance. 05/04/2024 12:49 PM CDT [facility] Clinical History History of multiple myeloma, non-secretory, under treatment. 05/04/2024 12:49 PM CDT [facility] Materials Received Received are 18 slide(s) and 3 blocks labeled [id number] along with a copy of the outside pathology report. The [place] [address]. All original materials are returned to the referring institution, along with a copy of our final report. 05/04/2024 12:49 PM CDT [facility] Pathologist Location at [facility] 05/04/2024 12:49 PM CDT [facility] Disclaimer The performance characteristics of all immunohistochemical and indirect immunofluorescence stains (if any) cited in this report were determined by the Histopathology Laboratory of [facility]. Some of these tests were developed by our own laboratory and have not been cleared or approved by the US Food and Drug Administration. The FDA does not require this test to go through premarket FDA review. These tests are used for clinical purposes. They should not be regarded as investigational or for research. This laboratory is certified under the Clinical Laboratory Improvement Amendments (CLIA) as qualified to perform high complexity clinical laboratory testing. This case has been personally reviewed and interpreted by the attending (teaching) pathologist. 05/04/2024 12:49 PM CDT [facility] Addendum 1 [place] and lambda light chains by in-situ hybridization study is performed, and revealing no significant numbers of plasma cells. The original diagnosis remains unchanged. 05/04/2024 12:49 PM CDT [facility] Addendum electronically signed by Jovanny Cabrales MD on 05/04/2024 at 1249 CDT Embedded Images 05/04/2024 12:49 PM CDT [facility] Pathology/Cytology BONE MARROW SPECIMEN / Unknown 04/30/2024 9:28 AM CDT 05/01/2024 1:06 PM CDT Miscellaneous samples (specimen) BONE MARROW SPECIMEN / Unknown 04/30/2024 9:28 AM CDT 05/01/2024 1:06 PM CDT Candido Blevins MD LAB - PATHO LOGY/CYTOLOGY ORDERABLES Edited Result - Final [facility] [address] [facility] [address], [facility] [phone] documented in this encounter Visit Diagnoses Diagnosis Illness, unspecified documented in this encounter Care Teams Communicable Disease Specialist Relationship Specialty Start Date End Date Alon Manriquez MD [address] DIV OF HEMATOLOGY & [place] [address] Push Bench Operator Helper/Oncologis t Hematology and Oncology 08/04/23 Sara Oquendo MD [address] [facility] DIV OF HEMATOLOGY & [place] [address] Hematology and Oncology 08/04/23 Jeniffer Wilcox MD [address] [place] [phone] Physician Hematology and Oncology 08/04/23 Arturo Reyes MD [address] [place] [id number] Medical Oncology 08/04/23 Gwendolyn Cole, PharmD 08/04/23 Sudha Sandoval, RN 08/04/23 Rosanna Morales APRN-RN SPINE Nurse Practitioner 08/04/23 Julianne Guy APRN-RN SPINE [address] [facility] [address] DIV OF HEMATOLOGY & [place] [address] Advance Practice Nurse Nurse Practitioner 08/04/23 Maida Conde, OTILIA Registered Nurse 08/04/23 Radha Vaughan LCSW Corporate General Manager 08/04/23 Zenia Mariano Coordinator 08/04/23 documented as of this encounter
--- OUTSIDE RECORDS SUMMARY | 2024-12-18 10:47 | XMS_ITS | Clinical Summary ---
Author Organization [facility] Address [address] [facility] [place] [address] Care Team Providers Care Special Makeup Fx Artist Instructor Name Role Phone Emilfrederic Alon Jang MD Unavailable [phone] Sara Oquendo MD Unavailable [phone] Jeniffer Wilcox MD Unavailable Arturo Reyes MD Unavailable [phone] Gwendolyn ColeD Unavailable Unavaila Sudha Acosta RN Unavailable Unavailable Rosanna Morales STAFF PHARMACIST-PARTY PLANNER Unavailable [phone] Julianne Guy STAFF PHARMACIST-PARTY PLANNER Unavailable [phone] Maida Conde RN Unavailable Unavaila Radha Alvarez LCSW Unavailable Unavailab Zenia Hua Unavailable Unavailable Source Comments [facility],non-owned Affiliates and Associated Physician Practices is amultiple site organization consisting of ambulatory clinics and hospital sitesin [place], [place], [place] and [place]. This disclosure is being madepursuant to the Care Everywhere program and may not contain all information available regarding this patient. Last updated 18.[facility] Allergies No known active allergies Medications * Be aware that medications may not be up to date on this document. Alwaysverify current medications with the patient. ibuprofen (Motrin) 600 MG tablet Take 1 (one) tablet by mouth every 6 hours as needed for Pain Active ezetimibe (Zetia) 10 MG tablet Take 1 (one) tablet by mouth once daily 02/07/20 23 Active finasteride (Proscar) 5 MG tablet Take 1 (one) tablet by mouth once daily 01/09/20 23 Active rosuvastatin (Crestor) 40 MG tablet Take 1 (one) tablet by mouth once daily 02/19/20 23 Active oxyCODONE, immediate release, (Roxicodone) 5 MG tabletIndication s:Closed fracture of proximal end of right humerus, unspecified fracture morphology, initial encounter,Pathol ogical fracture of right humerus, unspecified pathological cause, initial encounter (HCC) Take 1 (one) tablet by mouth every 4 hours as needed 28 tablet 04/21/20 Active Additional Information Patient not taking.Reported on 08/29/2023 acetaminophen (Tylenol) 500 MG tabletIndication s:Closed fracture of proximal end of right humerus, unspecified fracture morphology, initial encounter,Pathol ogical fracture of right humerus, unspecified pathological cause, initial encounter (HCC) Take 2 (two) tablets by mouth every 8 hours Maximum allowable Acetaminophen amount = 4 Grams (4000 mg) / 24 hours. 04/21/20 Active Additional Information Patient not taking.Reported on 08/29/2023 aspirin (Aspirin) 325 MG tabletIndication s:Closed fracture of proximal end of right humerus, unspecified fracture morphology, initial encounter,Pathol ogical fracture of right humerus, unspecified pathological cause, initial encounter (HCC) Take 1 (one) tablet by mouth once daily 30 tablet 04/21/20 Active docusate sodium (Colace) 100 MG capsuleIndicatio ns:Closed fracture of proximal end of right humerus, unspecified fracture morphology, initial encounter,Pathol ogical fracture of right humerus, unspecified pathological cause, initial encounter (HCC) Take 1 (one) capsule by mouth once daily 7 capsule 04/21/20 Active Additional Information Patient not taking.Reported on 08/29/2023 polyethylene glycol 3350 (Miralax) 17 g packetIndication s:Closed fracture of proximal end of right humerus, unspecified fracture morphology, initial encounter,Pathol ogical fracture of right humerus, unspecified pathological cause, initial encounter (HCC) Take 17 (seventeen) g by mouth once daily 7 packet 04/21/20 Active Additional Information Patient not taking.Reported on 08/29/2023 acyclovir (Zovirax) 400 MG tablet Take 1 (one) tablet by mouth 2 times daily 08/12/19 24 Active dexAMETHasone (Decadron) 4 MG tablet Take 10 (ten) tablets by mouth every 7 days 08/16/19 24 Active Revlimid 25 MG capsule Take 1 (one) capsule by mouth once daily Days 1-14 08/25/19 24 Active lidocaine-priloc pratibha (Emla) 2.5-2.5 % cream APPLY 1 APPLICATION ONTO THE AFFECTED AREA(S) PER ADMINISTRATION INSTRUCTIONS 05/17/20 23 Active ondansetron (Zofran) 8 MG tablet Take 1 (one) tablet by mouth every 8 hours as needed 05/17/20 23 Active Klor-Con M20 20 MEQ tablet Take 2 (two) tablets by mouth once daily 07/05/20 23 Active prochlorperazine (Compazine) 10 MG tablet Take 1 (one) tablet by mouth every 6 hours as needed 06/08/20 23 Active sulfamethoxazole -trimethoprim (Bactrim DS; Septra DS) 800-160 MG tablet Take 1 (one) tablet by mouth every Tuesday, , & Tuesday08/11/19 24 Active ergocalciferol (Drisdol) 1.25 MG (62603 UT) capsuleIndicatio ns:Vitamin D Deficiency Take 1 (one) capsule by mouth every 7 days Reasons: Vitamin D Deficiency 4 capsule 11 09/09/19 24 Active clonazePAM (KlonoPIN) 0.5 MG tablet Take 1 (one) tablet by mouth 2 times daily 60 tablet 09/27/19 24 Active Active Problems Problem Noted Date Diagnosed Date Anxiety 09/27/2023 Multiple myeloma not having achieved remission 0 08/20/2023 Closed fracture of proximal end of right humerus, unspecified fracture morphology, initial encounter 04/19/2023 Pathological fracture of rig ht humerus, unspecified pathological cause, initial encounter 04/19/2023 Family History Medical History Relation Name Comments Cancer - Colon Father Cancer - Prostate Other Uncle Relation Name Status Comments Father Other Uncle Social History Tobacco Use Types Packs/Day Years Used Date Smoking Tobacco: Never Smokeless Tobacco: Never Tobacco Cessation:Counseling Given: Not Answered Alcohol Use Standard Drinks/Week Comments Yes 2 [...] and heating? Not hard at all 04/19/2023 [facility] - Occupational Stress [...] place to sleep or slept in a usp (including now)? 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 Gender Identity Not on file Sexual Orientation Not on file Last Filed Vital Signs Vital Sign Reading Time Taken Comments Blood Pressure 120/59 09/27/2023 1:40 PM RAILROAD CAR CLEANER Pulse 100 09/27/2023 1:40 PM RAILROAD CAR CLEANER Temperature 37 C (98.6 F) 09/27/2023 1:11 PM RAILROAD CAR CLEANER Respiratory Rate 18 09/27/2023 1:40 PM RAILROAD CAR CLEANER Oxygen Saturation 98% 09/27/2023 1:40 PM RAILROAD CAR CLEANER Inhaled Oxygen Concentration - - Weight 71.2 kg (157 lb) 09/27/2023 11:43 AM RAILROAD CAR CLEANER Height 173.7 cm (5' 8.4 ) 09/21/2023 2:50 PM RAILROAD CAR CLEANER Body Mass Index 23.59 09/21/2023 2:50 PM RAILROAD CAR CLEANER Plan of Treatment Health Maintenance Due Date Last Done Comments COLOGUARD (AGES 45-75) - COL ON CA SCREENING 1964 COLON MONITORING 1964 COLONOSCOPY - COLON CA SCREENING 1964 CT COLONOGRAPHY - COLON CA SCREENING 1964 Colorectal Cancer Screening 1964 FIT - COLON CA SCREENING 1964 FLEX SIG - COLON CA SCREENING 1964 DTAP/TDAP/TD VACCINES (1 - Tdap) 02/18/1983 PNEUMOCOCCAL VACCINE 50+ (1 of 2 - PCV) 02/18/1983 ZOSTER VACCINE (1 of 2) 02/18/1983 Respiratory Syncytial Virus (RSV) Vaccine Pt: or over 60 yrs (1 - Risk 60-74 years 1-dose series) 2024 COVID-19 VACCINE (4 - 2023-2 5 season) 2024 01/11/2022, 06/24/2021, 11/08/2020 DEPRESSION SCREENING 08/01/2024 MEDICARE AWV CALENDAR YEAR 2024 INFLUENZA VACCINE (Season Ended) 2025 HIV SCREENING Completed 08/29/2023 HEPATITIS C SCREENING Completed 09/21/2023 , 08/29/2023 HEPATITIS B VACCINE Aged Out No longe r eligible based on patient's age to complete this topic HIB VACCINE Aged Out No longer eligi ble based on patient's age to complete this topic HPV VACCINE Aged Out No longer eligi ble based on patient's age to complete this topic MENINGOCOCCAL (Group B) VACCINE SHARED DECISION-MAKING Aged Out No longer eligible based on patient's age to complete this topic MENINGOCOCCAL GROUPS A/C/Y/W VACCINE Aged Out No longer eligible b ased on patient's age to complete this topic Procedures Procedure Name Priority Date/Time Associated Diagnosis Comments HEPATITIS C ANTIBODY Routine 09/21/2023 1:34 PM RAILROAD CAR CLEANER Pre-transplant evaluation for stem cell transplant Multiple myeloma not having achieved remission HIV-1 HIV-2 ANTIBODY + HIV P24 AG PANEL Routine 08/29/2023 12:33 PM RAILROAD CAR CLEANER Multiple myeloma not having achieved remission Pre-transplant evaluation for stem cell transplant from Last 3 Months or Most Recently Relevant to Health Maintenance Results * HEPATITIS C ANTIBODY (09/21/2023 1:34 PM RAILROAD CAR CLEANER) Hepatitis C Antibody Non-react zion Non-reac tive 09/21/2023 2:39 PM RAILROAD CAR CLEANER [facility] Comment:Hepatitis C Antibody screen indicates no serologic evidence of past or current infection with Hepatitis C Virus. Patients with unexplained liver disease who are immunocompromised or suspected of having acute Hepatitis C infection may benefit from Nucleic Acid Test (SHEILA) for Hepatitis C Viral RNA to confirm Hepatitis C status. Blood BLOOD SPECIMEN / Unknown Venipuncture / Unknown 09/21/2023 1:34 PM RAILROAD CAR CLEANER 09/21/2023 1:55 PM RAILROAD CAR CLEANER us Rosanna Morales STAFF PHARMACIST-PARTY PLANNER LAB - CHEMISTRY ORDERAB LES Final Result [address] [address], [place] [phone] * HIV-1 HIV-2 ANTIBODY + HIV P24 AG PANEL (08/29/2023 12:33 PM RAILROAD CAR CLEANER) HIV Antigen/Antibod y 1 & 2 Non-reacti ve Non-react zion 08/29/2023 1:24 PM RAILROAD CAR CLEANER [facility] Comment:No Laboratory eviden ce of HIV infection. Blood BLOOD SPECIMEN / Unknown Venipuncture / Unknown 08/29/2023 12:33 PM RAILROAD CAR CLEANER 08/29/2023 12:41 PM RAILROAD CAR CLEANER us Roasnna Morales STAFF PHARMACIST-PARTY PLANNER LAB - CHEMISTRY ORDERAB LES Final Result [address] [address] [phone] from Last 3 Months or Most Recently Relevant to Health Maintenance Insurance MEDICAID - [facility] MANAGED MEDICARE ADV URN-TRANSPLANT [facility] Advance Directives * Full Code (Latest Code Status on File) Date Activated Date Inactivated Comments 04/19/2023 1:53 PM 04/21/2023 6:37 PM Care Teams Special Makeup Fx Artist Instructor Relationship Specialty Start Date End Date Alon Manriquez MD [address] DIV OF HEMATOLOGY & [place] [address] Refrigerator Tester/Oncologis t Hematology and Oncology 08/04/23 Sara Oquendo MD [address] DIV OF HEMATOLOGY & [place] [address] Hematology and Oncology 08/04/23 Jeniffer Wilcox MD [address] [place] [id number] Physician Hematology and Oncology 08/04/23 Arturo Reyes MD [address] [facility] [address] [place], [place] [phone] Medical Oncology 08/04/23 Gwendolyn Cole, PharmD 08/04/23 Sudha Sandoval, RN 08/04/23 Rosanna Morales, STAFF PHARMACIST-PARTY PLANNER Nurse Practitioner 08/04/23 Julianne Guy, STAFF PHARMACIST-PARTY PLANNER [address] DIV OF HEMATOLOGY & [place] [address] Advance Practice Nurse Nurse Practitioner 08/04/23 Maida Conde, RN Registered Nurse 08/04/23 Radha Vaughan LCSW Physical Therapist Aide 08/04/23 Zenia Mariano Burning Machine Operator 08/04/23
--- OUTSIDE RECORDS SUMMARY | 2024-12-18 10:47 | XMS_ITS | Encounter Summary ---
Author Organization [facility] Address [address] [facility] [place] [address] Care Team Providers Care Child Development Professor Name Role Phone Alon Manriquez Suhail ARNDT Unavailable [phone] Sara Oquendo MD Unavailable [phone] Jeniffer Wilcox MD Unavailable Arturo Reyes MD Unavailable [phone] Gwendolyn ColeD Unavailable Unavaila Sudha Acosta RN Unavailable Unavailable Rosanna Morales HAND CUTTER APPRENTICE-GARAGE HAND Unavailable [phone] Julianne Guy HAND CUTTER APPRENTICE-GARAGE HAND Unavailable [phone] Maida Conde RN Unavailable Unavaila Radha Alvarez LCSW Unavailable Unavailab Zenia Hua Unavailable Unavailable Encounter Details Date Type Department Care Team (Late st Contact Info) Description 08/11/2023 Lab Requisition [facility] - Pathology Lab [address] [place] [phone] Sara Oquendo MD [address] [facility] [place] [address] Illness, unspecified Social History Tobacco Use Types Packs/Day Years Used Date Smoking Tobacco: Never Smokeless Tobacco: Never Alcohol Use Standard Drinks/Week Comments Yes 0 (1 standard drink = 0.6 oz pur [...] and heating? Not hard at all 04/19/2023 [facility] - Occupational Stress [...] place to sleep or slept in a senior care (including now)? No 04/19/2023 Sex and Gender Information Value Date Recorded Sex Assigned at Not on file Legal Sex Male 8:21 AM MYSQL DATABASE ADMINISTRATOR Gender Identity Not on file Sexual Orientation Not on file documented as of this encounter Functional Status * Is person deaf or have serious hearing difficulty? Answer Date of Assessment Author No 04/19/2023 8:30 PM Pietro Kiser RN * Is person blind or have serious difficulty seeing? Answer Date of Assessment Author No 04/19/2023 8:30 PM Pietro Kiser RN * Does person have serious difficulty walking/climbing stairs? Answer Date of Assessment Author No 04/19/2023 8:30 PM Pietro Kiser RN * Does person have difficulty dressing/bathing? Answer Date of Assessment Author No 04/19/2023 8:30 PM Pietro Kiser RN * Does person have difficulty doing errands alone? Answer Date of Assessment Author No 04/19/2023 8:30 PM Pietro Kiser RN documented as of this encounter Mental Status * Does person have difficulty concentrating/remembering/making decisions? 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 Overall the plasma cells have mature morphology, but occasional cells with plasmablastic features are noted. Provided immunohistochemical/i n-situ hybridization stains with appropriate controls show the tumor to be diffusely positive for CD138, IgA, MUM-1, with a small subset CD56 positive (5%) and negative for IgM, IgG, CD117 (no control included), CD3, cyclin D1, CD19, CD20, CD79a, pancytokeratin, CAM5.2, kappa and lambda JOYCE, and KIM JOYCE. 08/12/2023 10:52 AM [facility] PATH[facility] LAB Clinical History 57 year old man with scalp mass invading the calvarium and into intradural spaces. 08/12/2023 10:52 AM MYSQL DATABASE ADMINISTRATOR [facility] Materials Received Received are 18 slide(s) labeled [id number] along with a copy of the outside pathology report. The materials originate from [address] [place] [address]. All original materials are returned to the referring institution, along with a copy of our final report. 08/12/2023 10:52 AM [facility] PATH[facility] AP Comment By report, flow identified an abnormal plasma cell population with expression of dim CD45, CD38, and CD138 without expression of CD19, CD20, kappa, lambda, and CD56. 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 08/12/2023 10:52 AM [facility] PATH[facility] LAB Pathologist Location at [facility] 08/12/2023 10:52 AM [facility] PATH[facility] LAB Disclaimer The performance characteristics of all immunohistochemical and indirect immunofluorescence stains (if any) cited in this report were determined by the Histopathology Laboratory of [facility]. Some of these tests were developed by [...] and interpreted by the attending (teaching) pathologist. 08/12/2023 10:52 AM [facility] PATHOLOG[facility] LAB Case Report Surgical Pathology Report Case: [id number] Authorizing Provider: Sara Oquenod MD Collected: 08/11/2023 08:28 AM Ordering Location: [facility] Pathology Lab Received: 08/11/2023 08:28 AM Pathologist: Margarita Jamison MD Specimen: Slide Consultation, Soft tissue, scalp bx 08/12/2023 10:52 AM [facility] PATHOLOG[facility] LAB Embedded Images 08/12/2023 10:52 AM [facility] PATHOLOGY LAB Pathology/Cytolo gy SURGICAL PATHOLOGY CONSULTATION AND REPORT ON REFERRED SLIDES PREPARED ELSEWHERE / Unknown 08/11/2023 8:28 AM MYSQL DATABASE ADMINISTRATOR 08/11/2023 8:28 AM MYSQL DATABASE ADMINISTRATOR Sara Oquendo MD LAB - PATHOLOGY/CYTOLOGY ORDERA BLES Final Result [facility] [address] [place] [place] [place] [address], [facility] [phone] documented in this encounter Visit Diagnoses Diagnosis Illness, unspecified documented in this encounter Care Teams Child Development Professor Relationship Specialty Start Date End Date Alon Manriquez MD [address] [facility] [place] [address] Event Marketing Coordinator/Oncologis t Hematology and Oncology 08/04/23 Sara Oquendo MD [address] [facility] [place] [address] Hematology and Oncology 08/04/23 Jeniffer Wilcox MD [address] [place] [phone] Physician Hematology and Oncology 08/04/23 Arturo Reyes MD [address] [facility] [address] [place] [phone] Medical Oncology 08/04/23 Gwendolyn Cole, PharmD 08/04/23 Sudha Sandoval, RN 08/04/23 Rosanna Morales APRN-GARAGE HAND Nurse Practitioner 08/04/23 Julianne Guy APRN-GARAGE HAND [address] [facility] [place] [address] Advance Practice Nurse Nurse Practitioner 08/04/23 Maida Conde, RN Registered Nurse 08/04/23 Radha Vaughan LCSW Director Design 08/04/23 Zenia Mariano Herb Counselor 08/04/23 documented as of this encounter
--- OUTSIDE RECORDS SUMMARY | 2024-12-18 10:47 | XMS_ITS | Encounter Summary ---
Author Organization [facility] Address [address] [place] [address] Care Team Providers Care Insurance Analyst Name Role Phone Alon Manriquez Suhail ARNDT Unavailable [phone] Sara Oquendo MD Unavailable [phone] Jeniffer Wilcox MD Unavailable Arturo Reyes MD Unavailable [phone] Gwendolyn ColeD Unavailable Unavaila Sudha Acosta RN Unavailable Unavailable Rosanna Morales MOTOR VEHICLE LICENCE EXAMINER-CORRECTIONS SERGEANT Unavailable [phone] Julianne Guy MOTOR VEHICLE LICENCE EXAMINER-CORRECTIONS SERGEANT Unavailable [phone] Maida Conde RN Unavailable Unavaila Radha Alvarez LCSW Unavailable Unavailab Zenia Hua Unavailable Unavailable Encounter Details Date Type Department Care Team (Late st Contact Info) Description 04/30/2024 Lab Requisition [facility] - Pathology Lab [address] [place] [phone] Candido Blevins MD [address] [address] Multiple myeloma not having achieved remission Social History Tobacco Use Types Packs/Day Years [...] and heating? Not hard at all 04/19/2023 [facility] - Occupational Stress [...] place to sleep or slept in a alf (including now)? No 04/19/2023 Sex and Gender Information Value Date Recorded Sex Assigned at Not on file Legal Sex Male 8:21 AM AMBULANCE PARAMEDIC Gender Identity Not on file Sexual Orientation [...] Procedure Name Priority Date/Time Associated Diagnosis Comments FLOW CYTOMETRY BONE MARROW Routine 04/30/2024 9:28 AM CDT Multiple myeloma not having achieved remission (HCC) documented in this encounter Results * FLOW CYTOMETRY BONE MARROW (04/30/2024 9:28 AM CDT) Case Report Flow Cytometry Case: [id number] Authorizing Provider: Candido Blevins Collected: 04/30/2024 09:28 AM MD Enmanuel Ordering Location: [facility] - Received: 04/30/2024 11:56 AM Pathology Lab Pathologist: Jovanny Cabrales MD Specimen: Bone Marrow 04/30/2024 4:11 PM CDT [facility] PATH[facility] Final Diagnosis Bone marrow, flow cytometric immunophenotyping : - No significant numbers of plasma cells (2% of total). - A minute population of CD19 and CD10 positive cells identified in the dim CD45 region (less than 1% of total), with kappa-restriction . Correlation with morphology and additional ancillary studies of the concurrent bone marrow specimen necessary for the clinical significance. 04/30/2024 4:11 PM CDT [facility] PATH[facility] LAB at 1611 CDT Flow Cytometry Interpretation Viability: 94% B-cells: polytypic, kappa:lambda ratio ~2.6:1 T-cells: Present based on CD5 expression Blasts: not increased, ~1% of overall events. A minute population of CD19 and CD10 positive cells identified in the dim CD45 region (less than 1% of total), with kappa : lambda ratio of 19 :1, with no significant coexpression of CD5, CD20, or CD34 Plasma cells: no significant population detected (2% of total), clonality inaccurate to determine A bone marrow aspirate smear prepared from the flow cytometry specimen has been reviewed for software quality assurance specialist purposes. Please correlate with morphology and additional ancillary studies of the concurrent bone marrow specimen. 04/30/2024 4:11 PM [facility] Flow Cytometry Results Differential Result Comment Flow Cell Count /uL 21,600 Total Viability % 94.0 Lymphocytes % 23 Dim CD45 Region % 6 Monocytes % 12 Granulocytes % 59 04/30/2024 4:11 PM [facility] Reason for test Multiple myeloma not having achieved remission (HCC) 203.00 04/30/2024 4:11 PM [facility] Client Specimen ID # [id number] 04/30/2024 4:11 PM [facility] Number of markers 14 were performed. A-2 Flow CD10 A-3 Flow CD13 A-5 Flow CD20 A-13 Flow CD117 A-14 FLOW CD138 A-1 Flow CD5 A-4 Flow CD19 A-6 Flow CD33 A-7 Flow CD34 A-8 Flow CD45 A-11 Flow CD38 A-12 Flow CD56 A-9 Delano+CD19+ A-10 Lambda+CD19+ 04/30/2024 4:11 PM [facility] Pathologist Location at [facility] 04/30/2024 4:11 PM [facility] Disclaimer Test performed at [facility], [address] [place] [address], [address]. *The established laboratory minimum viability is 70%. Values below the minimum may result in the failure to find an abnormal population of cells. This test was developed and its performance characteristics determined by the Flow Cytometry Laboratory. It has not been cleared by the [place] Food and Drug Administration (FDA). The FDA has determined that such clearance or approval is not necessary. This test is used for clinical purposes. It should not be regarded as investigational or for research. This laboratory is regulated under the Clinical Laboratory Improvement Amendments of 1998 (CLIA) as a qualified to perform high complexity clinical testing. 04/30/2024 4:11 PM CDT [facility] Embedded Images 4:11 PM CDT [facility] Pathology/Cytolo gy BONE MARROW SPECIMEN / Unknown 04/30/2024 9:28 AM CDT 04/30/2024 11:56 AM CDT Candido Blevins MD LAB - PATHOLOGY/CYT OLOGY ORDERABLES Final Result [facility] [address] [facility] [place] [address], [facility] [phone] documented in this encounter Visit Diagnoses Diagnosis Multiple myeloma not having achieved remission (HCC) Multiple myeloma, without mention of having achieved remission documented in this encounter Care Teams Insurance Analyst Relationship Specialty Start Date End Date Alon Manriquez MD [address] [facility] [place] [address] Laborer Laboratory/Oncologis t Hematology and Oncology 08/04/23 Sara Oquendo MD [address] [facility] [place] [address] Hematology and Oncology 08/04/23 Jeniffer Wilcox MD [address] [place] [phone] Physician Hematology and Oncology 08/04/23 Arturo Reyes MD [address] [place] [phone] Medical Oncology 08/04/23 Gwendolyn Cole, PharmD 08/04/23 Sudha Sandoval, RN 08/04/23 Rosanna Morales APRN-ERUM Nurse Practitioner 08/04/23 Julianne Guy APRN-CNP [facility] [place] [address] Advance Practice Nurse Nurse Practitioner 08/04/23 Maida Conde RN Registered Nurse 08/04/23 Radha Vaughan LCSW Asbestos Brake Lining Finisher 08/04/23 Zenia Mariano Psychiatric Nursing Assistant 08/04/23 documented as of this encounter
--- OUTSIDE RECORDS SUMMARY | 2024-12-18 10:47 | XMS_ITS | Clinical Summary ---
Author Organization [facility] haim [facility] Address [address] [place] [address] [place] [address] Care Team Providers Care Cork Insulator Name Role Phone Antonio López MD Primary Care Provider [phone] Allergies No known active allergies Medications finasteride (PROSCAR) 5 mg tablet Take 5 mg by mouth daily. 023 Active ezetimibe (ZETIA) 10 mg tablet Take 10 mg by mouth daily. 023 Active rosuvastatin (CRESTOR) 40 mg tablet Take 40 mg by mouth daily. 023 Active aspirin (DEFLINA) 325 mg tablet Take 81 mg by mouth daily. 023 Active lidocaine-pril ocaine (EMLA) 2.5-2.5 % Cream Apply to affected area see administration instructions. 30 Gram 1 023 Active ondansetron (Zofran) 8 mg Tablet Take 1 Tablet (8 mg) by mouth every 8 hours as needed for Nausea/Emesis. 30 Tablet 1 023 Active prochlorperazi ne maleate (COMPAZINE) 10 mg tablet Take 1 Tablet (10 mg) by mouth every 6 hours as needed for Nausea/Emesis. 30 Tablet 2 023 Active megestroL (MEGACE) 400 mg/10 mL (40 mg/mL) suspension TAKE 5 ML BY MOUTH DAILY 240 mL 1 024 Active dexAMETHasone (DECADRON) 4 mg tablet Take 10 tablets every Tuesday on a weekly basis 40 Tablet 5 024 Active sulfamethoxazo le-trimethopri m (BACTRIM DS) 800-160 mg tabletIndicati ons:Multiple myeloma, remission status unspecified (CMS/HCC) Take 1 Tablet by mouth 2 times daily. 24 Tablet 4 024 Active acyclovir (ZOVIRAX) 400 mg tablet take 1 tablet by mouth twice a day 180 Tablet 1 024 Active CALCIUM CARBONATE ORAL Take by mouth. Active Klor-Con M20 20 mEq Extended Release tablet TAKE 1 TABLET BY MOUTH EVERY DAY 90 Tablet 1 024 Active gabapentin (NEURONTIN) 300 mg capsule Take 1 Capsule (300 mg) by mouth 3 times daily. 90 Capsule 1 025 Active lenalidomide (Revlimid) 10 mg capsule TAKE ONE CAPSULE BY MOUTH DAILY 28 Capsule 025 Active lenalidomide (Revlimid) 10 mg capsule TAKE ONE CAPSULE BY MOUTH DAILY 28 Capsule 025 2024 Discontinued Active Problems No known active problems Encounters Date Type Department Care Team Description 12/10/2024 Orders Only [facility] Oncology and Hematology - [place] [place] [phone] Arturo Reyes MD Multiple myeloma, remission status unspecified (CMS/HCC) 12/04/2024 Refill [facility] Oncology and Hematology - [place] [place] [phone] Anju Harp MD 11/26/2024 Orders Only [facility] Oncology and Hematology - [place] [place] [phone] Arturo Reyes MD Multiple myeloma, remission status unspecified (CMS/HCC) 11/23/2024 Orders Only [facility] Oncology and Hematology - [address] [place] [phone] Arturo Reyes MD 11/12/2024 Orders Only [facility] Oncology and Hematology - [address] [place] [phone] Arturo Reyes MD Multiple myeloma, remission status unspecified (CMS/HCC) 11/09/2024 Refill [facility] Oncology and Hematology - [address] [place] [phone] Anju Harp MD 10/29/2024 Orders Only [facility] Oncology and Hematology - [address] Arturo Reyes MD Multiple myeloma, remission status unspecified (CMS/HCC) 10/26/2024 Refill [facility] Oncology and Hematology - [place] [address] Arturo Reyes MD 10/15/2024 Orders Only [facility] Oncology and Hematology - [place] [place] [phone] Arturo Reyes MD Multiple myeloma, remission status unspecified (CMS/HCC) 10/08/2024 External Device Data STL ABSTRACTION Provider, Abstract 10/05/2024 Refill [facility] Oncology and Hematology - [place] Anju Harp MD 10/04/2024 Orders Only [facility] Oncology and Hematology - [place] [address] [place] [phone] Arturo Reyes MD 10/04/2024 Abstract [facility] Oncology and Hematology - [place] [place] [phone] Arturo Reyes MD 10/01/2024 Orders Only [facility] Oncology and Hematology - [place] [place] [phone] Arturo Reyes MD Multiple myeloma, remission status unspecified ([facility]/HCC) 09/20/2024 Refill [facility] Oncology and Hematology - [address] [place] [address] Arturo Reyes MD from Last 3 Months Family History Relation Name Status Comments Father Mother Alive Sister Alive Son Alive Social History Tobacco Use Types Packs/Day Years Used Date Smoking Tobacco: Never Smokeless Tobacco: Never Tobacco Cessation:Counseling Given: Not Answered Sex and Gender Information Value Date Recorded Sex Assigned at Not on file Legal Sex Male 7:49 AM CDT Gender Identity Not on file Sexual Orientation Not on file Last Filed Vital Signs Vital Sign Reading Time Taken Comments Blood Pressure 140/79 05/08/2024 2:50 PM CDT Pulse 70 05/08/2024 2:50 PM CDT Temperature 36.7 C (98 F) 05/08/2024 2:50 PM CDT Respiratory Rate 16 05/08/2024 2:50 PM CDT Oxygen Saturation 96% 05/08/2024 2:5 0 PM CDT Inhaled Oxygen Concentration - - Weight 79.4 kg (175 lb) 05/08/2024 2:50 PM CDT without prostetic Height 177.8 cm (5' 10 ) 03/07/2024 1:5 6 PM CDT Body Mass Index 25.11 03/07/2024 1:56 PM CDT Plan of Treatment Upcoming Encounters Date Type Department Care Team (Late st Contact Info) Description 12/20/2024 1:00 PM CDT Office Visit [facility] Oncology and Hematology - [place] [address] [facility] [address] [place] [address] Arturo Reyes MD [address] [facility] [address] [place] [address] Health Maintenance Due Date Last Done Comments Pre-Diabetes and Diabetes Screening 1965 DTAP/TDAP/TD VACCINES (1 - Tdap) 02/18/1983 ZOSTER VACCINE (1 of 2) 02/18/1983 COLORECTAL SCREENING 02/18/2009 Colorectal Cancer Screening 02/18/2009 FIT-DNA Q 3 years 02/18/2009 FIT/FOBT Q 1 year 02/18/2009 Flex Sig/CT Colonography Q 5 years 02/18/2009 RSV VACCINE (60+ or ) (1 - Risk 60-74 years 1-dose series) 2024 INFLUENZA VACCINE (#1) 2024 HEPATITIS B VACCINES Aged Out No long er eligible based on patient's age to complete this topic Procedures Procedure Name Priority Date/Time Associated Diagnosis Comments COMPREHENSIVE METABOLIC PANEL Routine 11/22/2024 10:06 AM CDT COMPREHENSIVE METABOLIC PANEL Routine 09/27/2024 3:49 PM FRANCHISE SALES DIRECTOR from Last 3 Months Results * COMPREHENSIVE METABOLIC PANEL (11/22/2024 10:06 AM CDT) Only the most recent of2 resultswithin the time period is included. Blood Arturo Reyes MD CHEMISTRY ORDERABLES Final Resu lt from Last 3 Months Insurance RX [employer] RX Member Subscriber Plan / Payer (Ef fective 2023-Present) Name:Ben Wall Jr. Relation to Subscriber:Self Name:Ben Wall Jr. Payer ID:Not on file Group ID:[id number] Type:RX Medicare Part D Address: [address] Care Teams Cork Insulator Relationship Specialty Start Date End Date Antonio López MD [address] [place] [address] PCP - General Family Practice 03/02/23
--- OUTSIDE RECORDS SUMMARY | 2024-12-18 10:47 | XMS_ITS | Continuity of Care Document ---
Author Organization [facility] Address [address] [place] [address] [place] [address] Phone Care Team Providers Care Cardiology Clinical Nurse Specialist Name Role Phone Jad Ames MD Unavailable Unavailable Procedures Procedure Date Office Consultation Eye Exam, New Patient No Script Advance Directives Directive Yes / No Effective Date File Name No Information Encounters Encounter Description Practice Location Reason(s) For Visit Diagnoses Date Provider Providers Copied on Encounter Office Consultation [facility], [address] [place] [address] [address], [place], [place], [id number], tel:[phone] [place] [facility] No Information [address] [facility], [place], [place], [id number], . tel:[phone] Referring Provider: Lio dangelo, [address] [place] [address], [facility]. tel:[phone] [facility], [address] [place] [address] [address], [place], [place], [id number], tel:[phone] [facility] No Information [address] [place] [address], [address], [place]. tel:[phone] Family History Family Member Type Diagnosis Age At Onset No Information Payers Payer name Insurance type Covered alliance party ID Authoriza tion(s) [place] [id number] Social History Type Description Quantity Date Captured Comments Sex Male Smoking Status No Information Chief Complaint And Reason For Visit No Information Reason For Referral Reason For Referral No Information History Of Present Illness Encounter Date Complaint History Of Prese nt Illness No Information Functional Status Date Functional Assessmen t No Information Instructions Date Instruction Additional Infor mation No Information Assessments Type Assessment Date No Information Patient Care Teams Name Effective Dates (start - stop) Status Members No Information
--- OUTSIDE RECORDS SUMMARY | 2024-12-18 10:47 | XMS_ITS ---
Author Organization [facility] Address [address] [place] [address] Care Team Providers Care Applications Administrator Name Role Phone Driss Manriquezmac Jang MD Unavailable [phone] Sara Oquendo MD Unavailable [phone] Jeniffer Wilcox MD Unavailable Arturo Reyes MD Unavailable [phone] Gwendolyn ColeD Unavailable UnavailSudha Mendoza RN Unavailable Unavailable Rosanna Morales APRN-HIGH REACH OPERATOR Unavailable [phone] Julianne Guy SAFETY SPECIALIST-HIGH REACH OPERATOR Unavailable [phone] Maida Conde RN Unavailable Unavaila Radha Alvarez LCSW Unavailable Unavailab Zenia Hua Unavailable Unavailable Active Problems Problem Noted Date Diagnosed Date Anxiety 09/27/2023 Multiple myeloma not having achieved remission 0 08/20/2023 Closed fracture of proximal end of right humerus, unspecified fracture morphology, initial encounter 04/19/2023 Pathological fracture of rig ht humerus, unspecified pathological cause, initial encounter 04/19/2023 Current Treatment and Therapy Plans BMT HPC SUPPORTIVE CARE?[facility] USE ONLY* Plan Start Date:08/24/2023 Plan Provider:Rosanna Morales APRN-CNP Linked Problems Multiple myeloma not having achieved remission (HCC) Treatment Medications No medications scheduled. Past Treatment and Therapy Plans No past plan information found. Lifetime Dose Tracking * Chemical Lifetime Dose Automatic Entry Manual Entr y Dose Length Product 1,272 mGy-cm 1,272 mGy-cm 0 mGy-cm
[2024-12-18 11:08] LABS: Glucose Point of Care 105 mg/dl (65-105)
== END 2024-12-18 10:33 | disposition home or self-care (01) ==
PROVIDERS: PCP Internal Medicine; Visit Provider Internal Medicine Hematology & Oncology
DX: C90.00 Multiple myeloma not having achieved remission (principal); E04.9 Nontoxic goiter, unspecified; N28.9 Disorder of kidney and ureter, unspecified; N40.0 Benign prostatic hyperplasia without lower urinary tract symptoms; K80.20 Calculus of gallbladder without cholecystitis without obstruction
CPT/HCPCS: 78815; A9552

== ENCOUNTER 2025-01-14 13:32 | Outpatient (CLI) | payer MEDICARE, SELFPAY ==
--- NOTE | ~2025-01-14 | US_ITS ---
US soft tissue head and neck INDICATION: History of bone cancer. TECHNIQUE: Real-time sonographic images of the thyroid gland were obtained. COMPARISON: No prior studies for comparison. FINDINGS: The right thyroid lobe measures 6 x 3.7 x 4.4 cm. The left thyroid lobe measures 4.1 x 1.9 x 0.9 cm. In the right lobe there is a heterogeneous predominantly hyperechoic solid mass measuring 4.8 x 2.7 x 5.1 cm. The mass is wider than tall, smoothly marginated without echogenic foci, TR 3. IMPRESSION: 1. Abnormal right thyroid mass measuring 5.1 cm, TR 3. Ultrasound-guided biopsy recommended. Reviewed, dictated and finalized at location A.
--- OUTSIDE RECORDS SUMMARY | 2025-01-14 14:37 | XMS_ITS | Encounter Summary ---
Author Organization [facility] Address [address] [place] [address] Care Team Providers Care Combination Machine Tool Setter Name Role Phone Alon Manriquez Suhail ARNDT Unavailable [phone] Sara Oquendo MD Unavailable [phone] Jeniffer Wilcox MD Unavailable Arturo Reyes MD Unavailable [phone] Gwendolyn ColeD Unavailable Unavaila Sudha Acosta RN Unavailable Unavailable Rosanna Morales DIABETES EDUCATOR-BORDER PATROL AGENT Unavailable [phone] Julianne Guy DIABETES EDUCATOR-BORDER PATROL AGENT Unavailable [phone] Maida Conde RN Unavailable Unavaila Radha Alvarez LCSW Unavailable Unavailab Zenia Hua Unavailable Unavailable Encounter Details Date Type Department Care Team (Late st Contact Info) Description 05/01/2024 Lab Requisition [facility] - Pathology Lab [address] [place] [address] Candido Blevins MD [address] [address] Illness, unspecified Social History Tobacco [...] and heating? Not hard at all 04/19/2023 [facility] - Occupational [...] on file Legal Sex Male 8:21 AM SPECIAL EDUCATOR Gender Identity Not on file Sexual Orientation [...] Report Bone Marrow Patholog y Report Case: [id number] Authorizing Provider: Candido Blevins Collected: 04/30/2024 09:28 AM MD Enmanuel Ordering Location: [facility] - Received: 05/01/2024 01:06 PM [...] FISH panel, etc. recommended. 05/04/2024 12:49 PM [facility] Peripheral Smear Description Not provided for review. 05/04/2024 12:49 PM [facility] Bone Marrow Aspirate Specimen [...] No ring sideroblasts seen 05/04/2024 12:49 PM [facility] Bone Marrow Core Biopsy [...] No ring sideroblasts seen 05/04/2024 12:49 PM [facility] Flow Cytometry Summary Bone [...] outside pathology report. [place] [address]. All original materials are returned to the referring institution, along with a copy of our final report. 05/04/2024 12:49 PM [facility] Pathologist Location at [facility] 05/04/2024 12:49 PM [facility] Disclaimer The performance characteristics of all immunohistochemical and indirect immunofluorescence stains (if any) cited in this report were determined by the Histopathology Laboratory of [facility]. Some of these tests were developed by [...] attending (teaching) pathologist. 05/04/2024 12:49 PM [facility]T [facility] Addendum 1 [place] and lambda light chains by in-situ hybridization study is performed, and revealing no significant numbers of plasma cells. The original diagnosis remains unchanged. 05/04/2024 12:49 PM CDT [facility] Addendum electronically signed by Jovanny [...] - Final [facility] [address] [facility] [facility] [place] [address], [facility] [phone] documented in this encounter Visit Diagnoses Diagnosis Illness, unspecified documented in this encounter Care Teams Combination Machine Tool Setter Relationship Specialty Start Date End Date Alon Manriquez MD [address] DIV OF HEMATOLOGY & [place] [address] Equalizing Saw Operator/Oncologis t Hematology and Oncology 08/04/23 Sara Oquendo MD [address] [facility] DIV OF HEMATOLOGY [place] [address] Hematology and Oncology 08/04/23 Jeniffer Wilcox MD [address] [place] [phone] Physician Hematology and Oncology 08/04/23 Arturo Reyes MD [address] [place] [phone] Medical Oncology 08/04/23 Gwendolyn Cole, PharmD 08/04/23 Sudha Sandoval, RN 08/04/23 Rosanna Morales APRN-BORDER PATROL AGENT Nurse Practitioner 08/04/23 Julianne Guy APRN-BORDER PATROL AGENT [address] DIV OF HEMATOLOGY & [place] [address] Advance Practice Nurse Nurse Practitioner 08/04/23 Maida Conde, OTILIA Registered Nurse 08/04/23 Radha Vaughan LCSW A R Specialist 08/04/23 Zenia Mariano Coordinator 08/04/23 documented as of this encounter
--- OUTSIDE RECORDS SUMMARY | 2025-01-14 14:37 | XMS_ITS | Clinical Summary ---
Author Organization [facility] Address [address] [place] [address] Care Team Providers Care Chief Deputy Name Role Phone Emilfrederic Alon Jang MD Unavailable [phone] Sara Oquendo MD Unavailable [phone] Jeniffer Wilcox MD Unavailable Arturo Reyes MD Unavailable [phone] Gwendolyn ColeD Unavailable Unavaila Sudha Acosta RN Unavailable Unavailable Rosanna Morales SOAPING MACHINE BACK TENDER-REAL ESTATE DIRECTOR Unavailable [phone] Julianne Guy SOAPING MACHINE BACK TENDER-REAL ESTATE DIRECTOR Unavailable [phone] Maida Conde RN Unavailable Unavaila Radha Alvarez LCSW Unavailable Unavailab Zenia Hua Unavailable Unavailable Source Comments [facility],non-owned Affiliates and Associated Physician Practices is amultiple site organization consisting of ambulatory clinics and hospital sitesin [place], [place], [place] and [place]. This disclosure is being madepursuant to the Care Everywhere program and may not contain all information available regarding this patient. Last updated 18.[facility] Allergies No known active allergies Medications * [...] Tuesday08/11/19 24 Active ergocalciferol (Drisdol) 1.25 MG (49320 UT) capsuleIndicatio ns:Vitamin D Deficiency Take 1 [...] and heating? Not hard at all 04/19/2023 [facility] - [...] place to sleep or slept in a [place] health care facility (including now)? No 04/19/2023 Sex and Gender Information Value Date Recorded Sex Assigned at Not on file Legal Sex Male 8:21 AM BAG PATCHER Gender Identity Not on file Sexual Orientation Not on file Last Filed Vital Signs Vital Sign Reading Time Taken Comments Blood Pressure 120/59 09/27/2023 1:40 PM BAG PATCHER Pulse 100 09/27/2023 1:40 PM BAG PATCHER Temperature 37 C (98.6 F) 09/27/2023 1:11 PM BAG PATCHER Respiratory Rate 18 09/27/2023 1:40 PM BAG PATCHER Oxygen Saturation 98% 09/27/2023 1:40 PM BAG PATCHER Inhaled Oxygen Concentration - - Weight 71.2 kg (157 lb) 09/27/2023 11:43 AM BAG PATCHER Height 173.7 cm (5' 8.4) 09/21/2023 2:50 PM BAG PATCHER Body Mass Index 23.59 09/21/2023 2:50 PM BAG PATCHER Plan of Treatment Health Maintenance Due Date [...] HEPATITIS C ANTIBODY Routine 09/21/2023 1:34 PM BAG PATCHER Pre-transplant evaluation for stem cell transplant Multiple myeloma not having achieved remission HIV-1 HIV-2 ANTIBODY + HIV P24 AG PANEL Routine 08/29/2023 12:33 PM BAG PATCHER Multiple myeloma not having achieved remission Pre-transplant evaluation for stem cell transplant from Last 3 Months or Most Recently Relevant to Health Maintenance Results * HEPATITIS C ANTIBODY (09/21/2023 1:34 PM BAG PATCHER) Hepatitis C Antibody Non-react zion Non-reac tive 09/21/2023 2:39 PM BAG PATCHER [facility] Comment:Hepatitis C Antibody screen indicates no serologic evidence of past or current infection with Hepatitis C Virus. Patients with unexplained liver disease who are immunocompromised or suspected of having acute Hepatitis C infection may benefit from Nucleic Acid Test (SHEILA) for Hepatitis C Viral RNA to confirm Hepatitis C status. Blood BLOOD SPECIMEN / Unknown Venipuncture / Unknown 09/21/2023 1:34 PM BAG PATCHER 09/21/2023 1:55 PM BAG PATCHER us Rosanna Morales SOAPING MACHINE BACK TENDER-REAL ESTATE DIRECTOR LAB - CHEMISTRY ORDERAB LES Final Result [address] [id number], [employer] [phone] * HIV-1 HIV-2 ANTIBODY + HIV P24 AG PANEL (08/29/2023 12:33 PM BAG PATCHER) HIV Antigen/Antibod y 1 & 2 Non-reacti ve Non-react zion 08/29/2023 1:24 PM BAG PATCHER [facility] Comment:No Laboratory eviden ce of HIV infection. Blood BLOOD SPECIMEN / Unknown Venipuncture / Unknown 08/29/2023 12:33 PM BAG PATCHER 08/29/2023 12:41 PM BAG PATCHER us Rosanna Morales SOAPING MACHINE BACK TENDER-REAL ESTATE DIRECTOR LAB - CHEMISTRY ORDERAB LES Final Result [address] [id number] [phone] from Last 3 Months or Most Recently Relevant to Health Maintenance Insurance MEDICAID - [facility] MANAGED MEDICARE ADV URN-TRANSPLANT [facility] Advance Directives * Full Code (Latest Code Status on File) Date Activated Date Inactivated Comments 04/19/2023 1:53 PM 04/21/2023 6:37 PM Care Teams Chief Deputy Relationship Specialty Start Date End Date Alon Manriquez MD [address] DIV OF HEMATOLOGY [place] [address] Cardiopulmonary Technician And Eeg Tech/Oncologis t Hematology and Oncology 08/04/23 Sara Oquendo MD [address] DIV OF HEMATOLOGY & [place] [address] Hematology and Oncology 08/04/23 Jeniffer Wilcox MD [address] [place] [phone] Physician Hematology and Oncology 08/04/23 Arturo Reyes MD [address] [facility] [address] [place], [place] [phone] Medical Oncology 08/04/23 Gwendolyn Cole, PharmD 08/04/23 Sudha Sandoval, RN 08/04/23 Rosanna Morales, SOAPING MACHINE BACK TENDER-REAL ESTATE DIRECTOR Nurse Practitioner 08/04/23 Julianne Guy, SOAPING MACHINE BACK TENDER-REAL ESTATE DIRECTOR [address] DIV OF HEMATOLOGY & [place] [address] Advance Practice Nurse Nurse Practitioner 08/04/23 Maida Conde, RN Registered Nurse 08/04/23 Radha Vaughan LCSW Detail Drafter 08/04/23 Zenia Mariano Cement Truck Driver 08/04/23
--- OUTSIDE RECORDS SUMMARY | 2025-01-14 14:37 | XMS_ITS | Clinical Summary ---
Author Organization [facility] Address [address] [place] [address] [place] [address] Care Team Providers Care Hris Manager Name Role Phone Antonio López MD Primary Care Provider [phone] Allergies No known active allergies Medications finasteride (PROSCAR) 5 mg tablet Take 5 mg by mouth daily. 023 Active ezetimibe (ZETIA) 10 mg tablet Take 10 mg by mouth daily. 023 Active rosuvastatin (CRESTOR) 40 mg tablet Take 40 mg by mouth daily. 023 Active aspirin (DELFINA) 325 mg tablet Take 81 mg by [...] CALCIUM CARBONATE ORAL Take by mouth. Active potassium CHLORIDE (K-DUR,KLOR-CO N M20) 20 mEq Extended Release tablet TAKE 1 TABLET BY MOUTH EVERY DAY 90 Tablet 1 025 Active gabapentin (NEURONTIN) 300 mg capsule TAKE 1 CAPSULE BY MOUTH THREE TIMES A DAY 90 Capsule 1 025 Active lenalidomide (Revlimid) 10 mg capsule TAKE ONE CAPSULE BY MOUTH DAILY 28 Capsule 025 Active Klor-Con M20 20 mEq Extended Release tablet TAKE 1 TABLET BY MOUTH EVERY DAY 90 Tablet 1 024 2024 Discontinued gabapentin (NEURONTIN) 300 mg capsule Take 1 Capsule (300 mg) by mouth 3 times daily. 90 Capsule 1 025 2024 Discontinued lenalidomide (Revlimid) 10 mg capsule TAKE ONE CAPSULE BY MOUTH DAILY 28 Capsule 025 2024 Discontinued Active Problems No known active problems Encounters Date Type Department Care Team Description 01/07/2025 Orders Only [facility] Oncology and Hematology [facility] [address] [place] [phone] Arturo Reyes MD Multiple myeloma, remission status unspecified (CMS/HCC) 01/02/2025 Refill [facility] Oncology and Hematology [facility] [address] [place] [phone] Anju Harp MD 12/28/2024 1:15 PM CDT Office Visit [facility] Oncology and Hematology [facility] [address] [place] [phone] Arturo Reyes MD Multiple myeloma, remission status unspecified (CMS/HCC) (Primary Dx); Thyroid nodule 12/28/2024 Orders Only [facility] Oncology and Hematology [facility] [address] [place] [phone] Arturo Reyes MD 12/27/2024 Orders Only [facility] Oncology and Hematology - [place] [address] [place] [phone] Arturo Reyes MD 12/24/2024 Orders Only [facility] Oncology and Hematology - [place] [address] [place] [phone] Arturo Reyes MD Multiple myeloma, remission status unspecified (CMS/HCC) 12/22/2024 Refill [facility] Oncology and Hematology - [place] [address] [place] [phone] Arturo Reyes MD 12/21/2024 Orders Only [facility] Oncology and Hematology - [place] [address] [place] [address] Arturo Reyes MD 12/19/2024 Orders Only [facility] Oncology and Hematology - [place] [address] [place] [address] Arturo Reyes MD 12/19/2024 Refill [facility] Oncology and Hematology - [place] [address] [place] [address] Arturo Reyes MD 12/10/2024 Orders Only [facility] Oncology and Hematology - [place] [address] [place] [phone] Arturo Reyes MD Multiple myeloma, remission status unspecified (CMS/HCC) 12/04/2024 Refill [facility] Oncology and Hematology - [place] [address] [place] [phone] Anju Harp MD 11/26/2024 Orders Only [facility] Oncology and Hematology - [place] [place] [address] Arturo Reyes MD Multiple myeloma, remission status unspecified (CMS/HCC) 11/23/2024 Orders Only [facility] Oncology and Hematology - [place] [address] [place] [address] Arturo Reyes MD 11/12/2024 Orders Only [facility] Oncology and Hematology - [place] [address] [place] [address] Arturo Reyes MD Multiple myeloma, remission status unspecified (CMS/HCC) 11/09/2024 Refill [facility] Oncology and Hematology - [place] [address] [place] [address] Anju Harp MD 10/29/2024 Orders Only [facility] Oncology and Hematology - [place] [address] [place] [address] Arturo Reyes MD Multiple myeloma, remission status unspecified (CMS/HCC) 10/26/2024 Refill [facility] Oncology and Hematology - [place] [address] [place] [address] Arturo Reyes MD 10/15/2024 Orders Only [facility] Oncology and Hematology - [place] [address] [place] [address] Arturo Reyes MD Multiple myeloma, remission status unspecified (CMS/HCC) from Last 3 Months Family History Relation [...] Sign Reading Time Taken Comments Blood Pressure 125/82 12/28/2024 12:57 PM CDT Pulse 75 12/28/2024 12:57 PM CDT Temperature 37.3 C (99.1 F) 12/28/2024 12:57 PM CDT Respiratory Rate 15 12/28/2024 12:57 PM CDT Oxygen Saturation 97% 12/28/2024 12:57 PM CDT Inhaled Oxygen Concentration - - Weight 83 kg (183 lb) 12/28/2024 12:57 PM CDT Height 177.8 cm (5' 10) 03/07/2024 1:56 PM CDT Body Mass Index 26.26 03/07/2024 1:56 PM CDT Plan of Treatment Upcoming Encounters Date Type Department Care Team (Late st Contact Info) Description 01/21/2025 4:30 PM CDT Telephone Check Up [facility] Oncology and Hematology [place] [address] [place] [address] Arturo Reyes MD [facility] [employer] [address] [place] [address] 03/29/2025 12:30 PM CDT Office Visit [facility] Oncology and [facility] [address] [place] [address] Arturo Reyes MD [facility] [employer] [address] [place] [phone] Health Maintenance Due Date Last Done [...] Associated Diagnosis Comments COMPREHENSIVE METABOLIC PANEL Routine 12/20/2024 5:04 PM CDT BASIC METABOLIC PANEL Routine 12/20/2024 5:02 PM CDT BASIC METABOLIC PANEL Routine 12/20/2024 5:01 PM CDT PROTEIN ELECTROPHORESIS, CSF Routine 12/20/2024 4:14 PM CDT PET BONE IMG W CT SKL BSE MID THG Routine 12/18/2024 1:52 PM CDT GLUCOSE LEVEL Routine 12/18/2024 1:35 PM CDT COMPREHENSIVE METABOLIC PANEL Routine 11/22/2024 10:06 AM CDT from Last 3 Months Results * COMPREHENSIVE METABOLIC PANEL (12/20/2024 5:04 PM CDT) Only the most recent of2 resultswithin the time period is included. Blood us Arturo Reyes MD CHEMISTRY ORDERABLES Final Resu lt * BASIC METABOLIC PANEL (12/20/2024 5:02 PM CDT) Only the most recent of2 resultswithin the time period is included. Blood us Arturo Reyes MD CHEMISTRY ORDERABLES Final Resu lt * PROTEIN ELECTROPHORESIS, CSF (12/20/2024 4:14 PM CDT) Cerebrospinal fluid CEREBROSPINAL FLUID / Unknown us Arturo Reyes MD BODY FLUIDS AND STOOLS Final Re sult * PET BONE IMG W CT SKB MDTH (12/18/2024 1:52 PM CDT) Anatomical Region Laterality Modality Positron Emissio n Tomography (PET) us Arturo Reyes MD PE ORDERABLES Final Result * GLUCOSE LEVEL (12/18/2024 1:35 PM CDT) Blood us Arturo Reyes MD CHEMISTRY ORDERABLES Final Resu lt from Last 3 Months Insurance [facility] [id number] MEDICAID [facility] RX [employer] RX Member Subscriber Plan / Payer (Ef fective 2023-Present) Name:Ben Wall Jr. Relation to Subscriber:Self Name:Ben Wall Jr. Payer ID:Not on file Group ID:[id number] Type:RX Medicare Part D Address: [address] Care Teams Hris Manager Relationship Specialty Start Date End Date Antonio López MD [address] [place] [address] PCP - General Family Practice 03/02/23
--- OUTSIDE RECORDS SUMMARY | 2025-01-14 14:37 | XMS_ITS ---
Author Organization [facility] Address [address] [facility] [facility] [place] [address] Care Team Providers Care Lead Database Administrator Name Role Phone Driss Manriquezmac Jang MD Unavailable [phone] Sara Oquendo MD Unavailable [phone] Jeniffer Wilcox MD Unavailable Arturo Reyes MD Unavailable [phone] Gwendolyn ColeD Unavailable UnavailSudha Mendoza RN Unavailable Unavailable Rosanna Morales APRN-FACILITIES ENGINEER Unavailable [phone] Julianne Guy TANK SETTER-FACILITIES ENGINEER Unavailable [phone] Maida Conde RN Unavailable Unavaila Radha Alvarez [...]
--- OUTSIDE RECORDS SUMMARY | 2025-01-14 14:37 | XMS_ITS | Continuity of Care Document ---
Author Organization [facility] Address [address] [place] [address] [address] [place] [address] Phone Care Team Providers Care Critical Care Unit Manager Name Role Phone Jad Ames MD Unavailable Unavailable Procedures Procedure Date Office Consultation Eye Exam, New Patient No Script Advance Directives Directive Yes / No Effective Date File Name No Information Encounters Encounter Description Practice Location Reason(s) For Visit Diagnoses Date Provider Providers Copied on Encounter Office Consultation [facility], [address] [place] [address] [address], [place], [place], [id number], tel:[phone] [facility] [place] [facility] No Information [address] [facility] [address], [place], [place], [id number], . tel:[phone] Referring Provider: Lio dangelo, [address] [place] [address], [facility]. tel:[phone] [facility], [address] [place] [address] [address], [place], [place], [id number], tel:[phone] SEC [facility] No Information [address] [place] [address], [address], [place]. tel:[phone] Family History Family Member Type Diagnosis Age At Onset No Information Payers Payer name Insurance type Covered republican ID Authoriza tion(s) [place] [id number] Social History Type Description Quantity Date Captured [...]
--- OUTSIDE RECORDS SUMMARY | 2025-01-14 14:37 | XMS_ITS | Encounter Summary ---
Author Organization [facility] Address [address] [facility] [place] [address] Care Team Providers Care Prop Setter Name Role Phone Alon Manriquez Suhail ARNDT Unavailable Sara Oquendo MD Unavailable [phone] Jeniffer Wilcox MD Unavailable Arturo Reyes MD Unavailable [phone] Gwendolyn ColeD Unavailable Unavaila Sudha Acosta RN Unavailable Unavailable Rosanna Morales ASSISTANT BOILER OPERATOR-AUTO TRANSMISSION TECHNICIAN Unavailable [phone] Julianne Guy ASSISTANT BOILER OPERATOR-AUTO TRANSMISSION TECHNICIAN Unavailable [phone] Maida Conde RN Unavailable Unavaila Radha Alvarez LCSW Unavailable Unavailab Zenia Hua Unavailable Unavailable Encounter Details Date Type Department Care Team (Late st Contact Info) Description 04/30/[address] [facility] - Pathology Lab [address] [place] [phone] Candido Blevins MD [address] [address] Multiple myeloma not having achieved [...] and heating? Not hard at all 04/19/2023 [facility] - Occupational [...] place to sleep or slept in a penitentiary (including now)? No 04/19/2023 Sex and Gender Information Value Date Recorded Sex Assigned at Not on file Legal Sex Male 8:21 AM WIND FARM ENGINEER Gender Identity Not on file Sexual Orientation [...] AM CDT) Case Report Flow Cytometry Case: [id number] Authorizing Provider: Candido Blevins Collected: 04/30/2024 09:28 AM MD Enmanuel Ordering Location: [facility] - Received: 04/30/2024 11:56 AM Pathology Lab Pathologist: Jovanny Cabrales MD Specimen: Bone Marrow 04/30/2024 4:11 PM CDT [facility] Final Diagnosis Bone marrow, flow [...] the clinical significance. 04/30/2024 4:11 PM CDT [facility] at 1611 CDT Flow Cytometry [...] flow cytometry specimen has been reviewed for quality liaison purposes. Please correlate with morphology and additional ancillary studies of the concurrent bone marrow specimen. 04/30/2024 4:11 PM [facility] Flow Cytometry Results Differential Result Comment Flow Cell Count /uL 21,600 Total Viability % 94.0 Lymphocytes % 23 Dim CD45 Region % 6 Monocytes % 12 Granulocytes % 59 04/30/2024 4:11 PM [facility] Reason for test Multiple myeloma not having achieved remission (HCC) 203.00 04/30/2024 4:11 PM [facility] Client Specimen ID # [id number] 04/30/2024 4:11 PM [facility] Number of markers 14 were performed. A-2 Flow CD10 A-3 Flow CD13 A-5 Flow CD20 A-13 Flow CD117 A-14 FLOW CD138 A-1 Flow CD5 A-4 Flow CD19 A-6 Flow CD33 A-7 Flow CD34 A-8 Flow CD45 A-11 Flow CD38 A-12 Flow CD56 A-9 [place]+CD19+ A-10 Lambda+CD19+ 04/30/2024 4:11 PM [facility] Pathologist Location at [facility] 04/30/2024 4:11 PM [facility] Disclaimer Test performed at [facility], [address] [place] [address], [address]. *The established laboratory minimum viability is 70%. [...] complexity clinical testing. 04/30/2024 4:11 PM CDT [facility] Embedded Images 4:11 PM CDT [facility] Pathology/Cytolo gy BONE MARROW SPECIMEN / Unknown 04/30/2024 9:28 AM CDT 04/30/2024 11:56 AM CDT Candido Blevins MD LAB - PATHOLOGY/CYT OLOGY ORDERABLES Final Result [facility] [address] [place] [address], [facility] [phone] documented in this encounter Visit Diagnoses Diagnosis Multiple myeloma not having achieved remission (HCC) Multiple myeloma, without mention of having achieved remission documented in this encounter Care Teams Prop Setter Relationship Specialty Start Date End Date Alon Manriquez MD [address] [facility] [place] [address] Customer Experience Specialist/Oncologis t Hematology and Oncology 08/04/23 Sara Oquendo MD [address] [facility] [place] [address] Hematology and Oncology 08/04/23 Jeniffer Wilcox MD [address] [place] [address] Physician Hematology and Oncology 08/04/23 Arturo Reyes MD [address] [place] [address] Medical Oncology 08/04/23 Gwendolyn Cole, PharmD 08/04/23 Sudha Sandoval, RN 08/04/23 Rosanna Morales APRN-ERUM Nurse Practitioner 08/04/23 Julianne Guy APRN-CNP [facility] [place] [address] Advance Practice Nurse Nurse Practitioner 08/04/23 Maida Conde RN Registered Nurse 08/04/23 Radha Vaughan LCSW Bar Machine Operator Multiple Spindle 08/04/23 Zenia Mariano Clean In Places Operator 08/04/23 documented as of this encounter
--- OUTSIDE RECORDS SUMMARY | 2025-01-14 14:37 | XMS_ITS | Encounter Summary ---
Author Organization [facility] Address [address] [facility] [place] [address] Care Team Providers Care Licensed Investment Sales Assistant Name Role Phone Alon Manriquez Suhail ARNDT Unavailable [phone] Sara Oquendo MD Unavailable [phone] Jeniffer Wilcox MD Unavailable Arturo Reyes MD Unavailable Gwendolyn ColeD Unavailable Unavaila Sudha Acosta RN Unavailable Unavailable Rosanna Morales SURGICAL ASSIST-BUSINESS BANKING MANAGER Unavailable [phone] Julianne Guy SURGICAL ASSIST-BUSINESS BANKING MANAGER Unavailable [phone] Maida Conde RN Unavailable Unavaila Radha Alvarez LCSW Unavailable Unavailab Zenia Hua Unavailable Unavailable Encounter Details Date Type Department Care Team (Late st Contact Info) Description 08/11/2023 Lab Requisition [facility] - Pathology Lab [address] [place] [phone] Sara Oquendo MD [address] [facility] [place] [address] Illness, unspecified Social History Tobacco Use Types [...] and heating? Not hard at all 04/19/2023 [facility] - Occupational [...] place to sleep or slept in a fpc (including now)? No 04/19/2023 Sex and Gender Information Value Date Recorded Sex Assigned at Not on file Legal Sex Male 8:21 AM LINER REROLL TENDER Gender Identity Not on file Sexual Orientation [...] ON REFERRED CASE Routine 08/11/2023 8:28 AM LINER REROLL TENDER Illness, unspecified documented in this encounter Results * PATH CONSULT ON REFERRED CASE (08/11/2023 8:28 AM LINER REROLL TENDER) Final Diagnosis Soft tissue, scalp, biopsy (OSC: [id number]; 02/14/2023): - Plasmacytoma 08/12/2023 10:52 AM [facility] at [address] LINER REROLL TENDER Microscopic Description and Comment Sections of the [...] JOYCE, and KIM JOYCE. 08/12/2023 10:52 AM [facility] Clinical History 57 year old man with scalp mass invading the calvarium and into intradural spaces. 08/12/2023 10:52 AM LINER REROLL TENDER [facility] Materials Received Received are 18 slide(s) labeled [id number] along with a copy of the outside pathology report. The materials originate from [address] [place] [address]. All original materials are returned to the referring institution, along with a copy of our final report. 08/12/2023 10:52 AM [facility] AP Comment By report, flow identified an abnormal plasma cell population with expression of dim CD45, CD38, and CD138 without expression of CD19, CD20, kappa, lambda, and CD56. 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 08/12/2023 10:52 AM [facility] Pathologist Location at [facility] 08/12/2023 10:52 AM [facility] Disclaimer The performance characteristics of all immunohistochemical and indirect immunofluorescence stains (if any) cited in this report were determined by the Histopathology Laboratory of [facility]. Some of these tests were developed by [...] the attending (teaching) pathologist. 08/12/2023 10:52 AM [facility] Case Report Surgical Pathology Report Case: [id number] Authorizing Provider: Sara Oquendo MD Collected: 08/11/2023 08:28 AM Ordering Location: [facility] Lab Received: 08/11/2023 08:28 AM Pathologist: Margarita Jamison MD Specimen: Slide Consultation, Soft tissue, scalp bx 08/12/2023 10:52 AM [facility] Embedded Images 08/12/2023 10:52 AM [facility] Pathology/Cytolo gy SURGICAL PATHOLOGY CONSULTATION AND REPORT ON REFERRED SLIDES PREPARED ELSEWHERE / Unknown 08/11/2023 8:28 AM LINER REROLL TENDER 08/11/2023 8:28 AM LINER REROLL TENDER Sara Oquendo MD LAB - PATHOLOGY/CYTOLOGY ORDERA BLES Final Result [facility] [address] [facility] [place] [address], [facility] [phone] documented in this encounter Visit Diagnoses Diagnosis Illness, unspecified documented in this encounter Care Teams Licensed Investment Sales Assistant Relationship Specialty Start Date End Date Alon Manriquez MD [address] [facility] [place] [address] Pediatric Licensed Practical Nurse/Oncologis t Hematology and Oncology 08/04/23 Sara Oquendo MD [address] [facility] [place] [address] Hematology and Oncology 08/04/23 Jeniffer Wilcox MD [address] [place] [phone] Physician Hematology and Oncology 08/04/23 Arturo Reyes MD [address] [facility] [address] [place] [phone] Medical Oncology 08/04/23 Gwendolyn Cole, PharmD 08/04/23 Sudha Sandoval, RN 08/04/23 Rosanna Morales APRN-BUSINESS BANKING MANAGER Nurse Practitioner 08/04/23 Julianne Guy APRN-BUSINESS BANKING MANAGER [address] [facility] [place] [address] Advance Practice Nurse Nurse Practitioner 08/04/23 Maida Conde, RN Registered Nurse 08/04/23 Radha Vaughan LCSW As400 Programmer 08/04/23 Zenia Mariano Hand Flatwork Finisher 08/04/23 documented as of this encounter
== END 2025-01-14 13:33 | disposition home or self-care (01) ==
PROVIDERS: PCP Internal Medicine; Visit Provider Internal Medicine Hematology & Oncology
DX: R22.1 Localized swelling, mass and lump, neck (principal); E04.1 Nontoxic single thyroid nodule
CPT/HCPCS: 76536

== ENCOUNTER 2025-03-05 12:49 | Outpatient (CLI) | payer MEDICARE, MEDICAID, SELFPAY ==
--- NOTE | ~2025-03-05 | US_ITS ---
EXAMINATION: US FNA w image guidance DATE: 03/05/2025 13:57 INDICATION: Thyroid nodule TECHNIQUE: A time-out was performed to verify the patient's name, date of , and procedure to be performed . The procedure and its benefits and risks were discussed with the patient. Risks specifically discus sed included bleeding and infection. The patient understood the risks and agreed to proceed. The neck was prepped and draped in the usual sterile manner. 4 mL 1% lidocaine was used for local anesthesia . 4 passes were made with a 25G needle into the lesion. Appropriate needle location was documented with continuous sonographic guidance. A sterile bandage was applied. There were no immediate compli cations. FINDINGS: Grayscale ultrasound images demonstrate biopsy needles advanced into a 5.2 cm right thyroid nodule. IMPRESSION: 1. Successful ultrasound-guided fine needle aspiration of a 5.2 cm right thyroid nodule. Reviewed, dictated and finalized at location A. IMPRESSION: 1. Successful ultrasound-guided fine needle aspiration of a 5.2 cm right thyro id nodule.
--- OUTSIDE RECORDS SUMMARY | 2025-03-05 12:55 | XMS_ITS | Clinical Summary ---
Author Organization [facility] haim [facility] Address [address] [place] [address] [place] [address] Care Team Providers Care Electrical Designer Drafter Name Role Phone Antonio López MD Primary Care Provider [phone] Allergies No known active allergies Medications finasteride [...] Active lenalidomide (Revlimid) 10 mg capsule TAKE 1 CAPSULE BY MOUTH DAILY 28 Capsule 025 Active gabapentin (NEURONTIN) 300 mg capsule TAKE 1 CAPSULE BY MOUTH THREE TIMES A DAY 90 Capsule 1 025 2024 Discontinued lenalidomide (Revlimid) 10 mg capsule TAKE ONE CAPSULE BY MOUTH DAILY 28 Capsule 025 2024 Discontinued Active Problems No known active problems Encounters Date Type Department Care Team Description 03/04/2025 Orders Only [facility] Oncology and Hematology - [address] [place] [address] Arturo Reyes MD Multiple myeloma, remission status unspecified ([facility]) 02/27/2025 Refill [facility] Oncology and Hematology - [address] [place] [address] Anju Harp MD 02/18/2025 Refill [facility] Oncology and Hematology - [address] [place] [address] Arturo Reyes MD 02/18/2025 Orders Only [facility] Oncology and Hematology - [address] [place] [address] Arturo Reyes MD Multiple myeloma, remission status unspecified ([facility]/HCC) 02/13/2025 External Device Data STL ABSTRACTION Provider, Abstract 02/04/2025 Orders Only [facility] Oncology and Hematology - [address] [place] [address] Arturo Reyes MD Multiple myeloma, remission status unspecified ([facility]) 01/30/2025 Refill [facility] Oncology and Hematology - [address] [place] [address] Anju Harp MD 01/28/2025 Orders Only [facility] Oncology and Hematology - [address] [place] [address] Arturo Reyes MD 01/21/2025 4:30 PM CDT Telephone Check Up [facility] Oncology and Hematology - [address] [place] [phone] Arturo Reyes MD Thyroid nodule (Primary Dx); Multiple myeloma, remission status unspecified (CMS/HCC) 01/16/2025 Orders Only [facility] Oncology and Hematology - [address] [place] [address] Arturo Reyes MD 01/07/2025 Orders Only [facility] Oncology and Hematology - [address] [place] [address] Arturo Reyes MD Multiple myeloma, remission status unspecified (CMS/HCC) 01/02/2025 Refill [facility] Oncology and Hematology - [address] [place] [phone] Anju Harp MD 12/28/2024 1:15 PM CDT Office Visit [facility] Oncology and Hematology - [address] [place] [address] Arturo Reyes MD Multiple myeloma, remission status unspecified (CMS/HCC) (Primary Dx); Thyroid nodule 12/28/2024 Orders Only [facility] Oncology and Hematology - [address] [place] [address] Arturo Reyes MD 12/27/2024 Orders Only [facility] Oncology and Hematology - [address] Arturo Reyes MD 12/24/2024 Orders Only [facility] Oncology and Hematology - [address] [place] [phone] Arturo Reyes MD Multiple myeloma, remission status unspecified (CMS/HCC) 12/22/2024 Refill [facility] Oncology and Hematology - [address] [place] [phone] Arturo Reyes MD 12/21/2024 Orders Only [facility] Oncology and Hematology - [address] [place] [address] Arturo Reyes MD 12/19/2024 Orders Only [facility] Oncology and Hematology - [address] [place] [phone] Arturo Reyes MD 12/19/2024 Refill [facility] Oncology and Hematology - [address] [place] [phone] Arturo Reyes MD 12/10/2024 Orders Only [facility] Oncology and Hematology - [address] [place] [phone] Arturo Reyes MD Multiple myeloma, remission status unspecified ([facility]/HCC) 12/04/2024 Refill [facility] Oncology and Hematology - [address] [place] [phone] Anju Harp MD from Last 3 Months Family History [...] Care Team (Late st Contact Info) Description 03/12/2025 4:30 PM CDT Telephone Check Up [facility] Oncology and Hematology [facility] [address] [place] [address] Arturo Reyes MD [address] [facility] [address] [place] [phone] 03/29/2025 12:30 PM CDT Office Visit [facility] Oncology and Hematology [facility] [address] [place] [address] Arturo Reyes MD [address] [facility] [address] [place] [phone] Health Maintenance Due Date Last Done Comments [...] years 1-dose series) 2024 INFLUENZA VACCINE (#1) 2025 Procedures Procedure Name Priority Date/Time Associated Diagnosis Comments COMPREHENSIVE METABOLIC PANEL Routine 02/14/2025 4:59 PM CDT BASIC METABOLIC PANEL Routine 01/17/2025 3:52 PM CDT COMPREHENSIVE METABOLIC PANEL Routine 01/17/2025 3:51 PM CDT HC US HEAD/NECK SOFT TISSUE Routine 01/14/2025 3:16 PM CDT COMPREHENSIVE METABOLIC PANEL Routine 12/20/2024 5:04 PM CDT BASIC METABOLIC PANEL Routine 12/20/2024 5:02 PM CDT BASIC METABOLIC PANEL Routine 12/20/2024 5:01 PM CDT PROTEIN ELECTROPHORESIS, CSF Routine 12/20/2024 4:14 PM CDT PET BONE IMG W CT SKL BSE MID THG Routine 12/18/2024 1:52 PM CDT GLUCOSE LEVEL Routine 12/18/2024 1:35 PM CDT from Last 3 Months Results * COMPREHENSIVE METABOLIC PANEL (02/14/2025 4:59 PM CDT) Only the most recent of3 resultswithin the time period is included. Blood us Arturo Reyes MD CHEMISTRY ORDERABLES Final Resu lt * BASIC METABOLIC PANEL (01/17/2025 3:52 PM CDT) Only the most recent of3 resultswithin the time period is included. Blood us Arturo Reyes MD CHEMISTRY ORDERABLES Final Resu lt * HC US HEAD/NECK SOFT TISSUE (01/14/2025 3:16 PM CDT) us Arturo Reyes MD [facility] ULTRASOUND Final Result * PROTEIN ELECTROPHORESIS, CSF (12/20/2024 4:14 PM CDT) Cerebrospinal fluid CEREBROSPINAL FLUID / Unknown us Arturo Reyes MD BODY FLUIDS AND STOOLS Final Re sult * PET BONE IMG W CT SKB MD (12/18/2024 1:52 PM CDT) Anatomical Region Laterality Modality Positron Emissio n Tomography (PET) Arturo Reyes MD PE ORDERABLES Final Result * GLUCOSE LEVEL (12/18/2024 1:35 PM CDT) Blood Arturo Reyes MD CHEMISTRY ORDERABLES Final Resu lt from Last 3 Months Insurance MEDICAID PENDING [place] RX [employer] Member Subscriber Plan / Payer (Ef fective 2023-Present) Name:Ben Wall Jr. Relation to Subscriber:Self Name:Ben Wall Jr. Payer ID:Not on file Group ID:[id number] Type:RX Medicare Part D Address: [address] Care Teams Electrical Designer Drafter Relationship Specialty Start Date End Date Antonio López MD [address] [place] [address] PCP - General Family Practice 03/02/23
--- OUTSIDE RECORDS SUMMARY | 2025-03-05 12:55 | XMS_ITS ---
Author Organization [facility] Address [address] [facility] [place] [address] Care Team Providers Care Summer Sessions Director Name Role Phone Driss Manriquezmac Jang MD Unavailable [phone] Sara Oquendo MD Unavailable [phone] Jeniffer Wilcox MD Unavailable Arturo Reyes MD Unavailable [phone] Gwendolyn ColeD Unavailable UnavailSudha Mendoza RN Unavailable Unavailable Rosanna Morales APRN-OFFSET PRINTING OPERATOR Unavailable Julianne Guy ANTIQUE DEALER-OFFSET PRINTING OPERATOR Unavailable [phone] Maida Conde RN Unavailable Unavaila Radha Alvarez [...]
--- OUTSIDE RECORDS SUMMARY | 2025-03-05 12:55 | XMS_ITS | Encounter Summary ---
Author Organization [facility] Address [address] [place] [address] Care Team Providers Care Mathematical Sciences Professor Name Role Phone Alon Manriquez Suhail ARNDT Unavailable [phone] Sara Oquendo MD Unavailable [phone] Jeniffer Wilcox MD Unavailable Arturo Reyes MD Unavailable [phone] Gwendolyn ColeD Unavailable Unavaila Sudha Acosta RN Unavailable Unavailable Rosanna Morales ONLINE MERCHANDISER-TECHNICAL INFORMATION SPECIALIST Unavailable [phone] Julianne Guy ONLINE MERCHANDISER-TECHNICAL INFORMATION SPECIALIST Unavailable [phone] Maida Conde RN Unavailable Unavaila Radha Alvarez LCSW Unavailable Unavailab Zenia Hua Unavailable Unavailable Encounter Details Date Type Department Care Team (Late st Contact Info) Description 04/30/2024 Lab Requisition [facility] - Pathology Lab [address] [place] [address] Candido Blevins MD [address] [address] Multiple myeloma not having achieved [...] and heating? Not hard at all 04/19/2023 [facility] - [...] place to sleep or slept in a mcc (including now)? No 04/19/2023 Sex and Gender Information Value Date Recorded Sex Assigned at Not on file Legal Sex Male 8:21 AM TRAWL NET MAKER Gender Identity Not on file Sexual Orientation [...] AM CDT) Case Report Flow Cytometry Case: [id number] Authorizing Provider: Candido Blevins Collected: 04/30/2024 09:28 AM MD Enmanuel Ordering Location: [facility] - Received: 04/30/2024 11:56 AM Pathology Lab Pathologist: Jovanny Cabrales MD Specimen: Bone Marrow 04/30/2024 4:11 PM CDT [facility] Final Diagnosis Bone marrow, [...] the clinical significance. 04/30/2024 4:11 PM CDT [facility] at 1611 CDT Flow [...] cytometry specimen has been reviewed for quality control analyst purposes. Please correlate with morphology and additional ancillary studies of the concurrent bone marrow specimen. 04/30/2024 4:11 PM [facility] Flow Cytometry Results Differential Result Comment Flow Cell Count /uL 21,600 Total Viability % 94.0 Lymphocytes % 23 Dim CD45 Region % 6 Monocytes % 12 Granulocytes % 59 04/30/2024 4:11 PM [facility] Reason for test Multiple myeloma not having achieved remission (HCC) 203.00 04/30/2024 4:11 PM [facility] Client Specimen ID # [id number] 04/30/2024 4:11 PM [facility] Number of markers 14 were performed. A-2 Flow CD10 A-3 Flow CD13 A-5 Flow CD20 A-13 Flow CD117 A-14 FLOW CD138 A-1 Flow CD5 A-4 Flow CD19 A-6 Flow CD33 A-7 Flow CD34 A-8 Flow CD45 A-11 Flow CD38 A-12 Flow CD56 A-9 Elbe+CD19+ A-10 Lambda+CD19+ 04/30/2024 4:11 PM [facility] Pathologist Location at [facility] 04/30/2024 4:11 PM [facility] Disclaimer Test performed at [facility], [address] [place] [address], [address]. *The established laboratory minimum viability is 70%. [...] complexity clinical testing. 04/30/2024 4:11 PM CDT [facility] Embedded Images 4:11 PM CDT [facility] Pathology/Cytolo gy BONE MARROW SPECIMEN / Unknown 04/30/2024 9:28 AM CDT 04/30/2024 11:56 AM CDT Candido Blevins MD LAB - PATHOLOGY/CYT OLOGY ORDERABLES Final Result [facility] [address] [place] [facility] [place] [address], [facility] [phone] documented in this encounter Visit Diagnoses Diagnosis Multiple myeloma not having achieved remission (HCC) Multiple myeloma, without mention of having achieved remission documented in this encounter Care Teams Mathematical Sciences Professor Relationship Specialty Start Date End Date Alon Manriquez MD [address] [facility] OF HEMATOLOGY [place] [address] Transit Proof Machine Operator/Oncologis t Hematology and Oncology 08/04/23 Sara Oquendo MD [address] [facility] OF HEMATOLOGY [place] [address] Hematology and Oncology 08/04/23 Jeniffer Wilcox MD [address] [place] [address] Physician Hematology and Oncology 08/04/23 Arturo Reyes MD [address] [place] [address] Medical Oncology 08/04/23 Gwendolyn Cole, PharmD 08/04/23 Sudha Sandoval, RN 08/04/23 Rosanna Morales APRN-ERUM Nurse Practitioner 08/04/23 Julianne Guy APRN-CNP [facility] OF HEMATOLOGY [place] [address] Advance Practice Nurse Nurse Practitioner 08/04/23 Maida Conde RN Registered Nurse 08/04/23 Radha Vaughan LCSW Casing Machine Operator 08/04/23 Zenia Mariano Commutator Undercutter 08/04/23 documented as of this encounter
--- OUTSIDE RECORDS SUMMARY | 2025-03-05 12:55 | XMS_ITS | Encounter Summary ---
Author Organization [facility] [employer] [facility] Address [address] [place] [address] Care Team Providers Care Tobacco Blender Name Role Phone Antonio López MD Primary Care Provider [phone] Encounter Details Date Type Department Care Team ([facility] Contact Info) Description 03/04/2025 Orders Only [facility] Oncology and Hematology - Nikol[address] [place] [address] Arturo Reyes MD [facility] [employer] [address] [place] [phone] Multiple myeloma, remission status unspecified (CMS/[facility]) Social History Tobacco Use Types Packs/Day Years Used Date Smoking Tobacco: Never Smokeless Tobacco: Never Sex and Gender Information Value Date Recorded Sex Assigned at Not on file Legal Sex Male 7:49 AM CDT Gender Identity Not on file Sexual Orientation Not on file documented as of this encounter Plan of Treatment Upcoming Encounters Date Type Department Care Team ([facility] Contact Info) Description 03/12/2025 4:30 PM CDT Telephone Check Up [facility] Oncology and Hematology - [address] [place] [address] Arturo Reyes MD [facility] [employer] [address] [place] [address] 03/29/2025 12:30 PM CDT Office Visit [facility] Oncology and Hematology - [address] [place] [address] Arturo Reyes MD [facility] [employer] [address] [place] [address] documented as of this encounter Visit Diagnoses Diagnosis Multiple myeloma, remission status unspecified (CMS/HCC) documented in this encounter Care Teams Tobacco Blender Relationship Specialty Start Date End Date Antonio López MD [address] [place] [address] PCP - General Family Practice 03/02/23 documented as of this encounter
--- OUTSIDE RECORDS SUMMARY | 2025-03-05 12:55 | XMS_ITS | Clinical Summary ---
Author Organization [facility] Address [address] [place] [address] Care Team Providers Care Low Vision Therapist Name Role Phone Emilfrederic Alon Jang MD Unavailable [phone] Sara Oquendo MD Unavailable [phone] Jeniffer Wilcox MD Unavailable Arturo Reyes MD Unavailable [phone] Gwendolyn ColeD Unavailable Unavaila Sudha Acosta RN Unavailable Unavailable Rosanna Morales CORRECTIONAL THERAPY TEACHER-SPECIAL MACHINE STITCHER Unavailable [phone] Julianne Guy CORRECTIONAL THERAPY TEACHER-SPECIAL MACHINE STITCHER Unavailable [phone] Maida Conde RN Unavailable Unavaila Radha Alvarez LCSW Unavailable Unavailab Zenia Hua Unavailable Unavailable Source Comments [facility],non-owned Affiliates and Associated Physician Practices is amultiple site organization consisting of ambulatory clinics and hospital sitesin [place], [place], [place] and [place]. This disclosure is being madepursuant to the Care Everywhere program and may not contain all information available regarding this patient. Last updated 18.[facility] Allergies No known active allergies Medications * [...] Tuesday08/11/19 24 Active ergocalciferol (Drisdol) 1.25 MG (16915 UT) capsuleIndicatio ns:Vitamin D Deficiency Take 1 [...] and heating? Not hard at all 04/19/2023 [facility] - [...] on file Legal Sex Male 8:21 AM POWDERER Gender Identity Not on file Sexual Orientation Not on file Last Filed Vital Signs Vital Sign Reading Time Taken Comments Blood Pressure 120/59 09/27/2023 1:40 PM POWDERER Pulse 100 09/27/2023 1:40 PM POWDERER Temperature 37 C (98.6 F) 09/27/2023 1:11 PM POWDERER Respiratory Rate 18 09/27/2023 1:40 PM POWDERER Oxygen Saturation 98% 09/27/2023 1:40 PM POWDERER Inhaled Oxygen Concentration - - Weight 71.2 kg (157 lb) 09/27/2023 11:43 AM POWDERER Height 173.7 cm (5' 8.4) 09/21/2023 2:50 PM POWDERER Body Mass Index 23.59 09/21/2023 2:50 PM POWDERER Plan of Treatment Health Maintenance Due Date [...] MEDICARE AWV CALENDAR YEAR 2024 INFLUENZA VACCINE (#1) 2025 HIV SCREENING Completed 08/29/2023 HEPATITIS C [...] HEPATITIS C ANTIBODY Routine 09/21/2023 1:34 PM POWDERER Pre-transplant evaluation for stem cell transplant Multiple myeloma not having achieved remission HIV-1 HIV-2 ANTIBODY + HIV P24 AG PANEL Routine 08/29/2023 12:33 PM POWDERER Multiple myeloma not having achieved remission Pre-transplant evaluation for stem cell transplant from Last 3 Months or Most Recently Relevant to Health Maintenance Results * HEPATITIS C ANTIBODY (09/21/2023 1:34 PM POWDERER) Hepatitis C Antibody Non-react zion Non-reac tive 09/21/2023 2:[address] [facility] Comment:Hepatitis C Antibody screen indicates no serologic evidence of past or current infection with Hepatitis C Virus. Patients with unexplained liver disease who are immunocompromised or suspected of having acute Hepatitis C infection may benefit from Nucleic Acid Test (SHEILA) for Hepatitis C Viral RNA to confirm Hepatitis C status. Blood BLOOD SPECIMEN / Unknown Venipuncture / Unknown 09/21/2023 1:34 PM POWDERER 09/21/2023 1:55 PM POWDERER us Rosanna Morales CORRECTIONAL THERAPY TEACHER-SPECIAL MACHINE STITCHER LAB - CHEMISTRY ORDERAB LES Final Result [address] [address], [employer] [phone] * HIV-1 HIV-2 ANTIBODY + HIV P24 AG PANEL (08/29/2023 12:33 PM POWDERER) HIV Antigen/Antibod y 1 & 2 Non-reacti ve Non-react zion 08/29/2023 1:[address] [facility] Comment:No Laboratory eviden ce of HIV infection. Blood BLOOD SPECIMEN / Unknown Venipuncture / Unknown 08/29/2023 12:33 PM POWDERER 08/29/2023 12:41 PM POWDERER us Rosanna Morales CORRECTIONAL THERAPY TEACHER-SPECIAL MACHINE STITCHER LAB - CHEMISTRY ORDERAB LES Final Result [address] [address] [phone] from Last 3 Months or Most Recently Relevant to Health Maintenance Insurance MED[place]ID - [place] [facility] MANAGED MEDICARE ADV URN-TRANSPLANT [employer] Advance Directives * Full Code (Latest Code Status on File) Date Activated Date Inactivated Comments 04/19/2023 1:53 PM 04/21/2023 6:37 PM Care Teams Low Vision Therapist Relationship Specialty Start Date End Date Alon Manriquez MD [address] OF HEMATOLOGY & [place] [address] Physician Office Clin Asst/Oncologis t Hematology and Oncology 08/04/23 Sara Oquendo MD [address] OF HEMATOLOGY [place] [address] Hematology and Oncology 08/04/23 Jeniffer Wilcox MD [address] [place] [phone] Physician Hematology and Oncology 08/04/23 Arturo Reyes MD [address] [facility] [address] [place], [place] [address] Medical Oncology 08/04/23 Gwendolyn Cole, PharmD 08/04/23 Sudha Sandoval, RN 08/04/23 Rosanna Morales, CORRECTIONAL THERAPY TEACHER-SPECIAL MACHINE STITCHER Nurse Practitioner 08/04/23 Julianne Guy, CORRECTIONAL THERAPY TEACHER-SPECIAL MACHINE STITCHER [address] OF HEMATOLOGY & [place] [address] Advance Practice Nurse Nurse Practitioner 08/04/23 Maida Conde, RN Registered Nurse 08/04/23 Radha Vaughan LCSW Operations Project Manager 08/04/23 Zenia Mariano Spectrographer 08/04/23
--- OUTSIDE RECORDS SUMMARY | 2025-03-05 12:55 | XMS_ITS | Encounter Summary ---
Author Organization [facility] Address [address] [place] [address] Care Team Providers Care Flatwork Assembler Name Role Phone Alon Manriquez Suhail ARNDT Unavailable [phone] Sara Oquendo MD Unavailable [phone] Jeniffer Wilcox MD Unavailable Arturo Reyes MD Unavailable [phone] Gwendolyn ColeD Unavailable Unavaila Sudha Acosta RN Unavailable Unavailable Rosanna Morales ENTRY ANALYST-MACHINE II CUTTER Unavailable [phone] Julianne Guy ENTRY ANALYST-MACHINE II CUTTER Unavailable [phone] Maida Conde RN Unavailable Unavaila Radha Alvarez LCSW Unavailable Unavailab Zenia Hua Unavailable Unavailable Encounter Details Date Type Department Care Team (Late st Contact Info) Description 08/11/2023 Lab Requisition [facility] - Pathology Lab [address] [place] [id number] Sara Oquendo MD [address] [facility] [place] [address] Illness, unspecified Social History Tobacco Use Types [...] and heating? Not hard at all 04/19/2023 [facility] - [...] on file Legal Sex Male 8:21 AM INSTRUMENTATION AND CONTROL TECHNICIAN Gender Identity Not on file Sexual Orientation [...] Assessment Author No 04/19/2023 8:30 PM Pietro Ksier RN * Does person have difficulty dressing/bathing? 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 at 1052 INSTRUMENTATION AND CONTROL TECHNICIAN Microscopic Description and Comment Sections of the [...] JOYCE, and KIM JOYCE. 08/12/2023 10:[address] [facility] Clinical History 57 year old man with scalp mass invading the calvarium and into intradural spaces. 08/12/2023 10:52 AM INSTRUMENTATION AND CONTROL TECHNICIAN [facility] Materials Received Received are 18 slide(s) labeled [id number] along with a copy of the outside pathology report. The materials originate from [address] [place] [address]. All original materials are returned to the referring institution, along with a copy of our final report. 08/12/2023 10:[address] [facility] AP Comment By report, flow identified an abnormal plasma cell population with expression of dim CD45, CD38, and CD138 without expression of CD19, CD20, kappa, lambda, and CD56. 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 08/12/2023 10:[address] [facility] Pathologist Location at [facility] 08/12/2023 10:[address] [facility] Disclaimer The performance characteristics of all immunohistochemical and indirect immunofluorescence stains (if any) cited in this report were determined by the Histopathology Laboratory of [facility]. Some of these tests were developed by [...] the attending (teaching) pathologist. 08/12/2023 10:[address] [facility] Case Report Surgical Pathology Report Case: [id number] Authorizing Provider: Sara Oquendo MD Collected: 08/11/2023 08:28 AM Ordering Location: [facility] Received: 08/11/2023 08:28 AM Pathologist: Margarita Jamison MD Specimen: Slide Consultation, Soft tissue, scalp bx 08/12/2023 10:[address] [facility] Embedded Images 08/12/2023 10:[address] [facility] Pathology/Cytolo gy SURGICAL PATHOLOGY CONSULTATION AND REPORT ON REFERRED SLIDES PREPARED ELSEWHERE / Unknown 08/11/2023 8:28 AM INSTRUMENTATION AND CONTROL TECHNICIAN 08/11/2023 8:28 AM INSTRUMENTATION AND CONTROL TECHNICIAN Sara Oquendo MD LAB - PATHOLOGY/CYTOLOGY ORDERA BLES Final Result [facility] [address] [facility] [place] [address], [facility] [phone] documented in this encounter Visit Diagnoses Diagnosis Illness, unspecified documented in this encounter Care Teams Flatwork Assembler Relationship Specialty Start Date End Date Alon Manriquez MD [address] [facility] [place] [address] Cross Roller/Oncologis t Hematology and Oncology 08/04/23 Sara Oquendo MD [address] [facility] [place] [address] Hematology and Oncology 08/04/23 Jeniffer Wilcox MD [address] [place] [phone] Physician Hematology and Oncology 08/04/23 Arturo Reyes MD [address] [facility] [address] [place] [phone] Medical Oncology 08/04/23 Gwendolyn Cole, PharmD 08/04/23 Sudha Sandoval, RN 08/04/23 Rosanna Morales APRN-MACHINE II CUTTER Nurse Practitioner 08/04/23 Julianne Guy APRN-MACHINE II CUTTER [address] [facility] [place] [address] Advance Practice Nurse Nurse Practitioner 08/04/23 Maida Conde, RN Registered Nurse 08/04/23 Radha Vaughan LCSW Manager Ct 08/04/23 Zenia Mariano Telephone Interceptor Operator 08/04/23 documented as of this encounter
--- OUTSIDE RECORDS SUMMARY | 2025-03-05 12:55 | XMS_ITS | Encounter Summary ---
Author Organization [facility] Address [address] [facility] [place] [address] Care Team Providers Care Mold Dresser Name Role Phone Alon Manriquez Suhail ARNDT Unavailable [phone] Sara Oquendo MD Unavailable [phone] Jeniffer Wilcox MD Unavailable Arturo Reyes MD Unavailable [phone] Gwendolyn ColeD Unavailable Unavaila Sudha Acosta RN Unavailable Unavailable Rosanna Morales FLIGHT ATTENDANT INFLIGHT SERVICES-ORTHO TECH Unavailable [phone] Julianne Guy FLIGHT ATTENDANT INFLIGHT SERVICES-ORTHO TECH Unavailable [phone] Maida Conde RN Unavailable Unavaila Radha Alvarez LCSW Unavailable Unavailab Zenia Hua Unavailable Unavailable Encounter Details Date Type Department Care Team (Late st Contact Info) Description 05/01/2024 Lab Requisition [facility] - Pathology Lab [address] [place] [phone] Candido Blevins MD [address] [address] Illness, unspecified Social History Tobacco [...] and heating? Not hard at all 04/19/2023 [facility] - [...] place to sleep or slept in a correction (including now)? No 04/19/2023 Sex and Gender Information Value Date Recorded Sex Assigned at Not on file Legal Sex Male 8:21 AM SHRIMP BOAT CAPTAIN Gender Identity Not on file Sexual Orientation [...] Report Bone Marrow Patholog y Report Case: [id number] Authorizing Provider: Candido Blevins Collected: 04/30/2024 09:28 AM MD Enmanuel Ordering Location: [facility] - Received: 05/01/2024 01:06 PM [...] FISH panel, etc. recommended. 05/04/2024 12:49 PM [facility] Peripheral Smear Description Not provided for review. 05/04/2024 12:49 PM [facility] Bone Marrow Aspirate Specimen quality: [...] No ring sideroblasts seen 05/04/2024 12:49 PM [facility] Bone Marrow Core Biopsy and [...] No ring sideroblasts seen 05/04/2024 12:49 PM [facility] Flow Cytometry Summary Bone marrow, [...] outside pathology report. [place] [address]. All original materials are returned to the referring institution, along with a copy of our final report. 05/04/2024 12:49 PM [facility] Pathologist Location at [facility] 05/04/2024 12:49 PM [facility] Disclaimer The performance characteristics of all immunohistochemical and indirect immunofluorescence stains (if any) cited in this report were determined by the Histopathology Laboratory of [facility]. Some of these tests were developed by [...] attending (teaching) pathologist. 05/04/2024 12:49 PM [facility]T [facility] Addendum 1 Twodot and lambda light chains by in-situ hybridization study is performed, and revealing no significant numbers of plasma cells. The original diagnosis remains unchanged. 05/04/2024 12:49 PM [facility]T [facility] Addendum electronically signed by Jovanny [...] - Final [facility] [address] [facility] [place] [address], [facility] [phone] documented in this encounter Visit Diagnoses Diagnosis Illness, unspecified documented in this encounter Care Teams Mold Dresser Relationship Specialty Start Date End Date Alon Manriquez MD [address] DIV OF HEMATOLOGY & [place] [address] Insurance Processor/Oncologis t Hematology and Oncology 08/04/23 Sara Oquendo MD [address] [facility] OF HEMATOLOGY & [place] [address] Hematology and Oncology 08/04/23 Jeniffer Wilcox MD [address] [place] [phone] Physician Hematology and Oncology 08/04/23 Arturo Reyes MD [address] [place] [phone] Medical Oncology 08/04/23 Gwendolyn Cole, PharmD 08/04/23 Sudha Sandoval, RN 08/04/23 Rosanna Morales APRN-ORTHO TECH Nurse Practitioner 08/04/23 Julianne Guy APRN-ORTHO TECH [address] [facility] [address] DIV OF HEMATOLOGY [place] [address] Advance Practice Nurse Nurse Practitioner 08/04/23 Maida Conde, OTILIA Registered Nurse 08/04/23 Radha Vaughan LCSW Drywall Sander 08/04/23 Zenia Mariano Coordinator 08/04/23 documented as of this encounter
--- NOTE | 2025-03-05 13:10 | CY_PTH ---
PATIENT: Ben Wall Jr. LOC: ANHIMG #:[id number] AGE/SX: 60/M ROOM: RE03/05/[address]: Arturo Reyes MD : 1965 BED: DIS: 03/05/2025 SPEC #: [id number] RECD: 03/05/25 13:57 STATUS: [place] REQ #: [id number] TREASURE: 03/05/25 13:[address]: Arturo Reyes DEPT: [facility] Cytology RECD BY: Melanie Castillo MLT, ([facility]) ENTERED: 03/05/25 13:57 SP TYPE: Cytology OTHR DR: Trevor Parker APRN Tissues: A - FNA Thyroid Procedures: Hematoxylin and Eosin Stain Cell Block Fine Needle Aspiration Evaluation Fine Needle Aspiration Pathologist
== END 2025-03-05 12:50 | disposition home or self-care (01) ==
PROVIDERS: PCP Nurse Practitioner; Visit Provider Internal Medicine Hematology & Oncology
DX: E04.1 Nontoxic single thyroid nodule (principal)
CPT/HCPCS: 10005; 88172; 88173; 88305